=== PATIENT | female | born 1960 | race Caucasian/White ===

== ENCOUNTER → 2020-02-08 08:37 | Outpatient (BNVA) | payer OTHER, SELFPAY | PROVIDERS: PCP Internal Medicine Endocrinology, Diabetes & Metabolism; Referring Provider Internal Medicine Endocrinology, Diabetes & Metabolism; Visit Provider Surgery | DX: E66.01 Morbid (severe) obesity due to excess calories (principal); Z68.43 Body mass index [BMI] 50.0-59.9, adult; G47.30 Sleep apnea, unspecified; E78.5 Hyperlipidemia, unspecified; I10 Essential (primary) hypertension; J45.909 Unspecified asthma, uncomplicated | CPT/HCPCS: 99202 ==

== ENCOUNTER → 2020-02-14 07:47 | Outpatient (BNVA) | payer OTHER, SELFPAY | PROVIDERS: PCP Internal Medicine Endocrinology, Diabetes & Metabolism; Referring Provider Internal Medicine Endocrinology, Diabetes & Metabolism; Visit Provider Dietitian, Registered | DX: Z01.818 Encounter for other preprocedural examination (principal); E66.01 Morbid (severe) obesity due to excess calories; Z68.43 Body mass index [BMI] 50.0-59.9, adult; Z71.3 Dietary counseling and surveillance | CPT/HCPCS: 99211 ==

== ENCOUNTER 2020-02-14 09:22 | Outpatient (REF) | payer OTHER, SELFPAY ==
--- NOTE | 2020-02-14 09:28 | XR_ITS ---
EXAMINATION: XR CHEST CLINICAL INFORMATION: Hyperlipidemia, unspecified COMPARISON: Chest radiographs 03/21/2017, 02/17/2017 TECHNIQUE: 2 frontal views and a lateral projection of the chest are obtained for 3 views. FINDINGS: The heart is within normal size. The vascularity is normal. There is no airspace consolidation or groundglass opacity. The costophrenic sulci are clear. The hilar and mediastinal contours and bony structures are unremarkable. XR/XR chest 2V IMPRESSION: Unremarkable examination.
[2020-02-14 12:02] LABS: MANUAL DIFF FLAG NO
[2020-02-14 12:11] LABS: Basophils Percent Auto 0.5 % (0-2); Eosinophils Absolute Auto 0.2 X10*3/uL (0.0-0.4); Eosinophils Percent Auto 2.4 % (0-4); Hemoglobin 13.4 g/dl (12.0-16.0); Imm Gran Abs Auto 0.04 X10*3/uL (0.00-0.03); Imm Gran Pct Auto 0.6 % (0.0-0.4); Lymphocytes Absolute Auto 1.4 X10*3/uL (1.2-4.9); Lymphocytes Percent Auto 22.9 % (20-40); Mean Corpuscular HGB Conc 32.7 g/dl (31.0-35.0); Mean Corpuscular Hemoglobin 29.8 pg (27.0-33.0); Mean Corpuscular Volume 91.3 fL (80-98); Mean Platelet Volume 10.2 fL (9.4-12.3); Monocytes Absolute Auto 0.4 X10*3/uL (0.1-1.2); Monocytes Percent Auto 5.9 % (2-11); Neutrophils Absolute Auto 4.3 X10*3/uL (2.0-8.3); Neutrophils Percent Auto 67.7 % (45-73); Platelet Count 239 X10*3/uL (160-400); Red Blood Count 4.49 X10*6/uL (4.20-5.50); Red Cell Distribution Width 12.9 % (11.0-16.0); White Blood Count 6.3 X10*3/uL (4.8-10.8)
[2020-02-14 13:07] LABS: Folate 12.3 ng/mL (> or = 4.0); Vitamin B12 330 pg/mL (200-900)
[2020-02-14 15:34] LABS: Alanine Aminotransferase 41 U/L (0-31); Albumin Level 4.2 g/dL (3.5-5.0); Alkaline Phosphatase 119 U/L (39-117); Anion Gap 17 (12-20); Aspartate Amino Transferase 30 U/L (5-31); Bilirubin Total 0.5 mg/dL (0.0-1.0); Blood Urea Nitrogen 13 mg/dL (9-16); C Reactive Protein 0.69 mg/dL (< or = 0.50); Calcium 8.8 mg/dL (8.4-10.2); Carbon Dioxide 25 mmol/L (22-29); Chloride 106 mmol/L (96-108); Cholesterol 163 mg/dL; Estimated Glomerular Filt Rate 45; Glucose Random 263 mg/dL (60-115); HDL Cholesterol 60 mg/dL; LDL Cholesterol Calculated 62 mg/dl; Potassium 4.7 mmol/l (3.3-5.1); Sodium 143 mmol/L (135-145); Total Protein 6.9 g/dL (6.5-8.0); Triglycerides 205 mg/dL
[2020-02-14 15:54] LABS: Ferritin 108 ng/mL (10-250)
[2020-02-14 17:56] LABS: Estimated Average Glucose 237 mg/dL; Hemoglobin A1c % 9.9 %
[2020-02-15 14:21] LABS: H Pylori Breath Test NOT DETECTED (NOT DETECTED)
[2020-02-17 09:26] LABS: Zinc 84 mcg/dL (60-130)
[2020-02-18 06:36] LABS: Vitamin B1 7 nmol/L (8-30)
[2020-02-18 12:17] LABS: Insulin Level Total 38.8 uIU/mL
[2020-02-20 18:56] LABS: Vitamin A 69 mcg/dL (38-98)
== END 2020-02-14 09:23 | disposition home or self-care (01) ==
LOC: HO.LAB 09:22
PROVIDERS: PCP Internal Medicine; Visit Provider Surgery
DX: E78.5 Hyperlipidemia, unspecified (principal); G47.30 Sleep apnea, unspecified; J45.909 Unspecified asthma, uncomplicated; E66.01 Morbid (severe) obesity due to excess calories
CPT/HCPCS: 36415; 71046; 80053; 80061; 82607; 82728; 82746; 83013; 83036; 83525; 84425; 84443; 84590; 84630; 85025; 86140

== ENCOUNTER 2020-02-21 07:42 | Outpatient (REF) | payer OTHER, SELFPAY ==
--- NOTE | 2020-02-21 10:25 | ECG_ITS ---
Test Reason : SOB, PREOP Blood Pressure : / mmHG Vent. Rate : 065 BPM Atrial Rate : 065 BPM P-R Int : 160 ms QRS Dur : 086 ms QT Int : 408 ms P-R-T Axes : 078 -05 047 degrees QTc Int : 424 ms Normal sinus rhythm Normal ECG When compared with ECG of 21-MAR-2017 13:24, No significant change was found Referred By: Jaime Lal Electronically Signed By:GERALDINE MIR MD
--- NOTE | 2020-02-21 10:25 | CA_ITS ---
Transthoracic Echocardiogram Patient (Last, First, Middle): Alexandria Galloway C Gender: Female Date of : 1960 Age: 59 Procedure Date: 02/21/2020 Procedure Type: Transthoracic Echocardiogram Location: OP Height: 170.18 cm Weight: 148.33 kg BSA: 2.49 m2 Heart Rate: bpm BP: 190 / 100 mmHg Safety Companion: Nazia MD: Jaime Lal MD Machinery Dismantler: Rick Jimenez MD Symptoms: E78.5 - Hyperlipidemia, unspecified Study Quality: Technically Difficult ECG Rhythm: Sinus Conclusions: - 1. Normal LV systolic function with normal diastolic function 2. Limited evaluation of cardiac valves with normal Doppler 3. Technically limited study despite use of definity contrast Findings Procedure Information Contrast agent, definity, is being given per protocol without apparent complications. Left Ventricle Normal left ventricular cavity size. The left ventricular systolic function is normal. The visually estimated ejection fraction is between 60-65%. There is no evidence of regional wall motion abnormalities. Diastolic function is normal for age. Right Ventricle The right ventricle was not well visualized. Atria The left atrium is normal in size. Interatrial shunt cannot be excluded. The right atrium was not well visualized. Aortic Valve The aortic valve was not well visualized. There is no aortic valve stenosis. There is no aortic valve regurgitation. Mitral Valve The mitral valve was not well visualized. There is no mitral valve regurgitation. There is no mitral valve stenosis. Pulmonic Valve The pulmonic valve was not well visualized. Tricuspid Valve The tricuspid valve was not well visualized. Tricuspid regurgitation envelope is inadequate for calculation of right ventricular systolic pressure. Great Vessels The aorta was not well visualized. The pulmonary artery was not well visualized. Venous The inferior vena cava was not well visualized. Pericardium/Pleural The pericardium was not well visualized. Prior Study Comparison Changes noted compared to prior study dated: 03/17/2017. LV mid cavity gradient not noted on this study could be under estimated Measurements 2D Linear Measurements LA Diam: 3.70 2.7-3.8/3.0-4.0 cm LAIDs Index: 1.49 1.5-2.3 cm/m2 LVOT Diam: 2.00 3.0+(-)1.3 cm Mitral Valve MV Pk E: 0.94 MV PK A: 0.65 MV Decel Time: 289.00 E/A: 1.50 E'Lateral: 7.40 E'Medial: 5.55 E/E' Med: 17.00 E/E' Lat: 12.70 Aortic Valve AoV Pk Maury: 1.67 AoV Mn Maury: 1.21 AoV VTI: 0.39 AoV Pk Grad: 11.00 Aov Mn Grad: 6.00 JAYNE Cont.VTI: 2.33 LVOT LVOT Pk Maury: 1.15 LVOT Mn Maury: 0.75 LVOT VTI: 0.29 LVOT Pk Grad: 5.00 LVOT Mn Grad: 3.00 LVOT Diam: 2.00 LVOT Area: 3.14 Diastolic Function MV Pk E: 0.94 MV Pk A: 0.65 E/A: 1.50 E'Medial: 5.55 E/E' Med: 17.00 E' Laterial: 7.40 E/E' Lat: 12.70 Tricuspid Valve RA Press: 8.00 Great Vessels Aorta Ao Asc: 2.60 2.1-3.4 cm Ao Arch: 2.70 Updated in Other Vendor System with Status of Final Rick Jimenez MD electronically signed on 02/22/2020 2:17:58 PM with status of Final
--- NOTE | 2020-02-21 12:56 | PFT_ITS ---
INDICATION: COPD. SPIROMETRY: The FEV1 to FVC is 88% with an FEV1 of 2.83 L, which is 97% predicted and an FVC of 3.24 L, which is 76% predicted. No significant response to bronchodilators noted. Maximum voluntary ventilation 101% predicted. LUNG VOLUMES: Total lung capacity 92% predicted with an expiratory reserve volume of 10% predicted, likely from elevated BMI. DIFFUSION CAPACITY: DLCO 81% predicted. COMPARISONS: None. INTERPRETATION: No obstructive nor restrictive ventilatory defects have been described. No significant response to bronchodilators noted. Normal maximum voluntary ventilation. Lung volumes do demonstrate a normal total lung capacity, however, a critically low expiratory reserve volume secondary to the elevated BMI. Diffusion capacity is low normal. If asthma is in the differential, a methacholine challenge may be helpful in assessing for hyper-reactive airways, otherwise, clinical correlation warranted. MD NORMA Geller/KASH / [id number]
== END 2020-02-21 07:43 | disposition home or self-care (01) ==
LOC: HO.RESP 07:42
PROVIDERS: Visit Provider Surgery
DX: Z01.818 Encounter for other preprocedural examination (principal); I10 Essential (primary) hypertension; J45.41 Moderate persistent asthma with (acute) exacerbation; E78.5 Hyperlipidemia, unspecified; J45.909 Unspecified asthma, uncomplicated
CPT/HCPCS: 93005; 93306; 94060; 94727; 94729; Q9957

== ENCOUNTER → 2020-02-27 08:11 | Outpatient (BNVA) | payer OTHER, SELFPAY | PROVIDERS: PCP Internal Medicine; Visit Provider Surgery | DX: Z76.89 Persons encountering health services in other specified circumstances (principal) ==

== ENCOUNTER → 2020-03-21 08:09 | Outpatient (BNVA) | payer OTHER, SELFPAY | PROVIDERS: PCP Internal Medicine; Referring Provider Internal Medicine; Visit Provider Surgery | DX: Z76.89 Persons encountering health services in other specified circumstances (principal) ==

== ENCOUNTER → 2020-03-27 09:08 | Outpatient (BNVA) | payer OTHER, SELFPAY | PROVIDERS: PCP Internal Medicine; Referring Provider Internal Medicine; Visit Provider Dietitian, Registered | DX: Z76.89 Persons encountering health services in other specified circumstances (principal) ==

== ENCOUNTER → 2020-04-07 09:10 | Outpatient (BNVA) | payer OTHER, SELFPAY | PROVIDERS: PCP Internal Medicine; Visit Provider Surgery | DX: Z76.89 Persons encountering health services in other specified circumstances (principal) ==

== ENCOUNTER → 2020-04-18 13:24 | Outpatient (BNVA) | payer OTHER, SELFPAY | PROVIDERS: PCP Internal Medicine; Visit Provider Surgery | DX: E66.01 Morbid (severe) obesity due to excess calories (principal); K21.9 Gastro-esophageal reflux disease without esophagitis; I10 Essential (primary) hypertension; E78.5 Hyperlipidemia, unspecified; G47.30 Sleep apnea, unspecified; R16.0 Hepatomegaly, not elsewhere classified | CPT/HCPCS: 99212 ==

== ENCOUNTER 2020-04-22 11:58 | Outpatient (REF) | payer OTHER, SELFPAY ==
--- NOTE | 2020-04-22 12:05 | US_ITS ---
EXAMINATION: US COMPLETE ABDOMEN WITH LIVER ELASTOGRAPHY CLINICAL INFORMATION: Hepatomegaly. COMPARISON: Ultrasound abdomen 02/22/2017 TECHNIQUE: Real-time imaging of the abdominal viscera. Noninvasive ultrasound liver fibrosis assessment is performed using Millie ElastPQ point quantification shear wave elastography (pSWE) with a 5 MHz transducer. Multiple elastography samples are obtained. FINDINGS: PANCREAS: Normal. The visualized pancreatic head and body are normal in appearance. The remainder of the pancreas is obscured from visualization by the overlying bowel gas. ABDOMINAL AORTA: The proximal, middle, and distal aortic segments are normal in caliber. INFERIOR VENA CAVA: Visualized portions are normal. LIVER: The liver demonstrates normal size, contour and increased echogenicity. No focal lesion or intrahepatic biliary duct dilatation. The right lobe measures 16.5 cm in length. The left lobe measures 9.4 cm in length. Shear wave elastography provides a median stiffness of 2.70 m/s (reference: normal median stiffness is 0.81 - 1.22 m/s). The IQR/median stiffness to assess sampling precision is 0.46 (reference: optimal IQR/median stiffness is under 0.3). On previous ultrasound the median stiffness was 1.65 m/s. GALLBLADDER: Normal. The gallbladder is physiologically distended without evidence of stones, sludge, polyps, wall thickening or pericholecystic fluid. COMMON BILE DUCT: Normal in caliber measuring 0.5 cm in diameter. RIGHT KIDNEY: Normal. No hydronephrosis. No renal calculi or focal parenchymal lesions. The kidney measures 10.6 cm in maximum dimension. LEFT KIDNEY: Normal. No hydronephrosis. No renal calculi or focal parenchymal lesions. The kidney measures 11.2 cm in maximum dimension. SPLEEN: Normal. The spleen measures 9.7 cm in maximum dimension. FREE FLUID: None. US/US abdomen comp w elastography IMPRESSION: 1. Borderline hepatomegaly with increased liver echogenicity. Rest of the abdominal ultrasound is unremarkable. 2. Elastography: Moderate to severe fibrosis, F3- F4. On previous ultrasound 02/22/2017 the median stiffness measured 1.65 m/s.
[2020-04-22 13:14] LABS: MANUAL DIFF FLAG NO
[2020-04-22 13:20] LABS: Basophils Percent Auto 0.3 % (0-2); Eosinophils Absolute Auto 0.1 X10*3/uL (0.0-0.4); Eosinophils Percent Auto 1.8 % (0-4); Hematocrit 42.2 % (37-47); Hemoglobin 13.9 g/dl (12.0-16.0); Imm Gran Abs Auto 0.03 X10*3/uL (0.00-0.03); Imm Gran Pct Auto 0.4 % (0.0-0.4); Lymphocytes Absolute Auto 1.4 X10*3/uL (1.2-4.9); Lymphocytes Percent Auto 18.8 % (20-40); Mean Corpuscular HGB Conc 32.9 g/dl (31.0-35.0); Mean Corpuscular Hemoglobin 29.7 pg (27.0-33.0); Mean Corpuscular Volume 90.2 fL (80-98); Mean Platelet Volume 9.4 fL (9.4-12.3); Monocytes Absolute Auto 0.6 X10*3/uL (0.1-1.2); Monocytes Percent Auto 8.3 % (2-11); Neutrophils Absolute Auto 5.2 X10*3/uL (2.0-8.3); Neutrophils Percent Auto 70.4 % (45-73); Platelet Count 269 X10*3/uL (160-400); Red Blood Count 4.68 X10*6/uL (4.20-5.50); Red Cell Distribution Width 13.2 % (11.0-16.0); White Blood Count 7.4 X10*3/uL (4.8-10.8)
[2020-04-22 13:24] LABS: Estimated Average Glucose 146 mg/dL; Hemoglobin A1c % 6.7 %
[2020-04-22 13:50] LABS: Alanine Aminotransferase 47 U/L (0-31); Albumin Level 4.6 g/dL (3.5-5.0); Alkaline Phosphatase 77 U/L (39-117); Anion Gap 15 (12-20); Aspartate Amino Transferase 33 U/L (5-31); Bilirubin Total 0.8 mg/dL (0.0-1.0); Blood Urea Nitrogen 22 mg/dL (9-16); C Reactive Protein 1.64 mg/dL (< or = 0.50); Calcium 10.2 mg/dL (8.4-10.2); Carbon Dioxide 26 mmol/L (22-29); Chloride 107 mmol/L (96-108); Cholesterol 225 mg/dL; Estimated Glomerular Filt Rate 50; Glucose Random 117 mg/dL (60-115); HDL Cholesterol 49 mg/dL; LDL Cholesterol Calculated 119 mg/dl; Potassium 4.9 mmol/l (3.3-5.1); Sodium 143 mmol/L (135-145); Total Protein 7.4 g/dL (6.5-8.0); Triglycerides 287 mg/dL
[2020-04-22 14:11] LABS: TSH reflex Free T4 2.14 mIU/mL (0.32-4.0)
[2020-04-22 14:15] LABS: INTERNATIONAL NORM RATIO 1.1 (0.9-1.1); Prothrombin Time 12.6 SEC (10.8-13.0)
[2020-04-22 14:18] LABS: Partial Thromboplastin Time 37.7 SEC (24.1-38.0)
[2020-04-23 11:27] LABS: Insulin Level Total 25.4 uIU/mL
== END 2020-04-22 11:59 | disposition home or self-care (01) ==
LOC: HO.US 11:58
PROVIDERS: Visit Provider Surgery
DX: Z01.818 Encounter for other preprocedural examination (principal); E66.01 Morbid (severe) obesity due to excess calories; E78.5 Hyperlipidemia, unspecified; G47.30 Sleep apnea, unspecified; J45.909 Unspecified asthma, uncomplicated; R16.0 Hepatomegaly, not elsewhere classified; E11.9 Type 2 diabetes mellitus without complications; Z79.4 Long term (current) use of insulin
CPT/HCPCS: 36415; 76705; 76981; 80053; 80061; 83036; 83525; 84443; 85025; 85610; 85730; 86140

== ENCOUNTER 2020-04-29 06:43 | Inpatient (IN) | payer OTHER, SELFPAY ==
[2020-04-18 12:39] VITALS: BP 143/90; PULSE 67; RESP 16; TEMP 36.3; O2SAT 97; BMI 47.7
--- NOTE | 2020-04-18 13:00 | P.CONAN_ITS ---
Documented by User: Francisca Campbell 04/25/20 13:36 HPI - Anesthesia Eval Consult details Narrative: 59yo F for Gastric Bypass Laproscopic PMFSH Past Medical History Medical History Anxiety Asthma COPD (chronic obstructive pulmonary disease) Depression GERD (gastroesophageal reflux disease) Hepatomegaly Hyperlipidemia Hypertension Insulin dependent diabetes mellitus Sleep apnea with use of continuous positive airway pressure (CPAP) Vitamin B1 deficiency Vitamin B12 deficiency Family History Family History Father Diabetes Heart disease Hypertension Mother No problems noted. Brother No problems noted. Sister No problems noted. Sister No problems noted. Family history of problems with anesthesia: No Surgical History Surgical History History of bilateral carpal tunnel release Hx of breast reduction, elective Hx of cardiac cath Morbid obesity History of Problems with Anesthesia: No Social History Social History Are you a primary administrator health care facility to a significant other at home: No Do you presently have visiting nurse or other home services: No Alcohol intake: former Smoking Status: Former smoker Smoking Quit Date: 2014 Use of substances other than those prescribed or required for medical reasons: Yes Substance Use Type: Marijuana Substance Use Frequency: Weekly Have you been hit, kicked, punched, or otherwise hurt by someone within the past year? If so, by whom?: No Spiritual Healthcare Practices: none Sabianist Healthcare Practices: none Cultural Healthcare Practices: none Advance Directives: No Advance Directives on File: No Recently lost weight without trying: No Narrative Narrative: No recent illness. Mild RANDLE. Improving with weightloss. No CP. Meds Allergies Allergy/AdvReac Type Severity Reaction Status Date / Time irbesartan [From AVALIDE] Allergy Severe Anaphylaxis Verified 04/29/20 06:31 lisinopril [From Zestril] Allergy Severe ANGIOEDEMA Verified 04/29/20 06:31 Home Medications Medication Instructions Recorded Confirmed Type albuterol sulfate 90 mcg/actuation 2 puff INHALATION Q6H PRN 02/08/20 04/18/20 History aerosol inhaler aspirin 81 mg tablet,delayed 81 mg PO DAILY 02/08/20 04/18/20 History release atorvastatin 20 mg tablet 20 mg PO DAILY 02/08/20 04/18/20 History blood sugar diagnostic #10 ea 02/08/20 04/18/20 History brexpiprazole 1 mg tablet 1 mg PO DAILY 02/08/20 04/18/20 History bupropion HCl 150 mg tablet,12 hr 150 mg PO BID 02/08/20 04/18/20 History sustained-release clonazepam 0.5 mg tablet 0.5 mg PO BID PRN 02/08/20 04/18/20 History dulaglutide 1.5 mg/0.5 mL 1.5 mg SUBCUT QWEEK 02/08/20 04/18/20 History subcutaneous pen injector duloxetine 20 mg capsule,delayed 40 mg PO BEDTIME 02/08/20 04/18/20 History release fluticasone propionate 232 1 inh INHALATION Q12H 02/08/20 04/17/20 History mcg/actuation breath activated powder inhaler insulin glargine 100 unit/mL (3 24 unit SUBCUT BEDTIME 02/08/20 04/18/20 History mL) subcutaneous pen lancets 28 gauge #100 ea 02/08/20 04/18/20 History metformin 500 mg tablet 1,000 mg PO BID 02/08/20 04/18/20 History metoprolol tartrate 50 mg tablet 50 mg PO BID 02/08/20 04/18/20 History sitagliptin 100 mg tablet 100 mg PO DAILY 02/08/20 04/18/20 History Exam Exam Date and Time: April 18, 2020 1300 Height,Weight and Vital Signs: Height 5 ft 7 in Weight 138.346 kg Last Vital Signs Temp 97.3 F 04/18/20 12:39 Pulse 67 04/18/20 12:39 Resp 16 04/18/20 12:39 BP 143/90 H 04/18/20 12:39 Pulse Ox 97 04/18/20 12:39 Narrative Narrative: EKG 02/2020: NSR @ 65 Echo 02/2020: Conclusions: - 1. Normal LV systolic function with normal diastolic function 2. Limited evaluation of cardiac valves with normal Doppler 3. Technically limited study despite use of definity contrast PFT 02/2020: No obstructive nor restrictive defect. No siginificant response to bronchodilators noted. Normal maximum voluntary ventilation. Lung volumes do demonstrate a normal total lung capacity, however, a critically low expiratory reserve volume secondary to elevated BMI. Diffusion capacity is a low normal. CXR 02/2020: unremarkable exam Cath 2017: Nml LV end-diastolic pressure. Nml resting left and right filling pressures. Nml resting PA pressures. No significant gradient across Aortic Valve. No HOCM physiology with simultaneous gradient across the LVOT. Coronary arteries are angiographically normal. Airway Mallampati Class: II (Small mouth) TM Dist: <=3cm Neck ROM: Full Loose/Missing/Broken Teeth: Yes (R lower molar broken, missing molars, ) Heart: RRR Lungs: CTAB Assessment and Plan Assessment Anesthesia Assessment: Anesthesia Plan Discussed and PAT Visit Documented by User: Loi Holder 04/29/20 07:14 PMFSH Past Medical History Medical History Anxiety Asthma COPD (chronic obstructive pulmonary disease) Depression GERD (gastroesophageal reflux disease) Hepatomegaly Hyperlipidemia Hypertension Insulin dependent diabetes mellitus Sleep apnea with use of continuous positive airway pressure (CPAP) Vitamin B1 deficiency Vitamin B12 deficiency Family History Family History Father Diabetes Heart disease Hypertension Mother No problems noted. Brother No problems noted. Sister No problems noted. Sister No problems noted. Surgical History Surgical History History of bilateral carpal tunnel release Hx of breast reduction, elective Hx of cardiac cath Morbid obesity Social History Social History Are you a primary administrator health care facility to a significant other at home: No Do you presently have visiting nurse or other home services: No Alcohol intake: former Smoking Status: Former smoker Smoking Quit Date: 2014 Use of substances other than those prescribed or required for medical reasons: Yes Substance Use Type: Marijuana Substance Use Frequency: Weekly Have you been hit, kicked, punched, or otherwise hurt by someone within the past year? If so, by whom?: No Spiritual Healthcare Practices: none Sabianist Healthcare Practices: none Cultural Healthcare Practices: none Advance Directives: No Advance Directives on File: No Recently lost weight without trying: No Meds Allergies Allergy/AdvReac Type Severity Reaction Status Date / Time irbesartan [From AVALIDE] Allergy Severe Anaphylaxis Verified 04/29/20 06:31 lisinopril [From Zestril] Allergy Severe ANGIOEDEMA Verified 04/29/20 06:31 Home Medications Medication Instructions Recorded Confirmed Type albuterol sulfate 90 mcg/actuation 2 puff INHALATION Q6H PRN 02/08/20 04/18/20 History aerosol inhaler aspirin 81 mg tablet,delayed 81 mg PO DAILY 02/08/20 04/18/20 History release atorvastatin 20 mg tablet 20 mg PO DAILY 02/08/20 04/18/20 History blood sugar diagnostic #10 ea 02/08/20 04/18/20 History brexpiprazole 1 mg tablet 1 mg PO DAILY 02/08/20 04/18/20 History bupropion HCl 150 mg tablet,12 hr 150 mg PO BID 02/08/20 04/18/20 History sustained-release clonazepam 0.5 mg tablet 0.5 mg PO BID PRN 02/08/20 04/18/20 History dulaglutide 1.5 mg/0.5 mL 1.5 mg SUBCUT QWEEK 02/08/20 04/18/20 History subcutaneous pen injector duloxetine 20 mg capsule,delayed 40 mg PO BEDTIME 02/08/20 04/18/20 History release fluticasone propionate 232 1 inh INHALATION Q12H 02/08/20 04/17/20 History mcg/actuation breath activated powder inhaler insulin glargine 100 unit/mL (3 24 unit SUBCUT BEDTIME 02/08/20 04/18/20 History mL) subcutaneous pen lancets 28 gauge #100 ea 02/08/20 04/18/20 History metformin 500 mg tablet 1,000 mg PO BID 02/08/20 04/18/20 History metoprolol tartrate 50 mg tablet 50 mg PO BID 02/08/20 04/18/20 History sitagliptin 100 mg tablet 100 mg PO DAILY 02/08/20 04/18/20 History Exam Airway Mallampati Class: III TM Dist: >3cm Neck ROM: Full Loose/Missing/Broken Teeth: No Heart: [id number] Lungs: cta b/l Assessment and Plan Assessment Anesthesia Assessment: Anesthesia Plan Discussed, PAT Visit and Chart Reviewed Final Anesthetic Review NPO: Yes ASA Class: III Final Preanesthetic Review: No Changes in Pt Med Stat, Meds/Allgs Chart Reviewed, Consent Obtained/Reviewed and Anes Risks/Benef Reviewed Patient Risk: Intermediate Procedure Risk: Intermediate Assessment/Block/Sedation in SS: Assess/Block/Sedation-SS Anesthetic Plan Anesthetic Plan: GA and Agree w/ Assess. and Plan Disposition: Standard PACU
[2020-04-29] VITALS (36 sets, daily range): BP systolic 136–216; BP diastolic 69–112; PULSE 72–109; RESP 14–20; TEMP 35.6–36.8; O2SAT 89–100
[2020-04-29 06:49] LABS: COVID-19 Test Negative (Negative); IDNOW Serial# 9DD0AD1C
[2020-04-29] MEDS: Lactated Ringers 1,000 ML 100 ML IVCONT (07:02)
--- NOTE | 2020-04-29 07:04 | MHC.SHP ---
Pre-Procedural Eval Section A The patient is an INPATIENT: Yes The History & Physical has been completed within 30 days and I have reviewed it.: Yes Section B Chief Complaint: S/P Gastric bypass and possible hernia repair Details of Present Illness: Morbid obesity Relevant Family History (Specify if Yes): No Relevant Social History: None Present Medications: see Short Stay Collaborative assessment Medical History: No relevant PMH History of Previous Operations: No relevant previous surgery Allergies: Allergies Allergy/AdvReac Type Severity Reaction Status Date / Time irbesartan [From AVALIDE] Allergy Severe Anaphylaxis Verified 04/29/20 06:31 lisinopril [From Zestril] Allergy Severe ANGIOEDEMA Verified 04/29/20 06:31 Review of Systems Sugical H&P ROS: Negative: Constitution, Cardiovascular, Respiratory, Neurological, Psychiatric, Hem-Onc, Allergic/Immunologic, Gastrointestinal, Genitourinary, Musculoskeletal, Integumentary, Endocrine and Eyes/Ears/Nose/Throat Exam Surgical H&P Exam: Normal: HEENT, Normal: Heart, Normal: Lungs, Normal: Extremities, Normal: Abdomen, Normal: Skin and Normal: Neurological Plan Diagnosis/Plan: Unchanged I have reviewed the history and physical and performed a pertinent physical examination on my patient. No changes have occurred unless specified.
[2020-04-29] MEDS: ceFAZolin Sodium/Dextrose,Iso 2 GM/50 ML PIGGYBACK IV ×2 (07:23→14:07)
[2020-04-29] MEDS: Lactated Ringers 1,000 ML 999 ML IVCONT (07:25)
[2020-04-29 08:45] LABS: Glucose, Whole Blood 130 mg/dL (60-115)
--- NOTE | 2020-04-29 12:46 | P.BOP_ITS ---
Brief Operative Note Date of Service: 04/29/20 Pre-op diagnosis: Morbid obesity and comorbidities (see below) Post-op diagnosis: same Procedure: PROCEDURE: Upper endoscopy and laparoscopic Lam-en-Y gastric bypass with a Lam limb of 230 cm INDICATIONS: This is a 59 year-old female with a BMI of 52.7 kg/m2 and associated comorbid conditions as described previously. After appropriate workup was performed, the patient was electively scheduled for laparoscopic, possibly open, gastric bypass. The risks and complications of the procedure were discussed with the patient in advance, particularly the possibility of ; pulmonary embolism; anastomotic leak; bleeding; bowel obstruction; cardiac, pulmonary, or renal complications; as well as long-term problems such as insufficient weight loss, vitamin deficiency, anastomotic strictures, or ulcers. The patient understood all the risks, and was in agreement to proceed with surgery. DESCRIPTION OF PROCEDURE: After informed consent was obtained from the patient, the patient was given pre operative antibiotics, and was transferred to the operating room. After successful induction of general anesthesia, a Meeks catheter and pneumatic compressive devices were placed on both lower extremities. An upper endoscopy was performed next. The oropharynx and esophagus appeared to be within normal limits. There was no diaphragmatic hernia present. The stomach was entered. Then after all fluid and air were suctioned and the stomach was fully decompressed, the scope was withdrawn and secured in the mid esophagus. The patient was then prepped and draped in the usual sterile manner, and abdo kaushik access was established at the right upper quadrant with the Caitlyn technique. A 12 mm blunt port was inserted, and the abdomen was insufflated with CO2 to a pressure of 15 mmHg. Under direct visualization, additional ports were placed, specifically a 5 and a 12 mm Versi-Step port, to the left and right of the umbilicus, two 5 mm ports to the left upper quadrant, and a 5 mm Versi-Step port to the right upper quadrant. Lidocaine plain was used to inflitrate all skin incisions and fascial defects preemptively. Following that, the patient was placed in a steep reverse Trendelenburg position . An additional 5 mm port was placed to the right flank for the Mediflex retractor that was used to retract the left lobe of the liver. The pars flaccida was opened with the ultrasonic device and the lesser sac was entered. The angle of His was opened with the ultrasonic device the fundus of the stomach from any diaphragmatic and splenic attachments. We then opened the gastrocolic ligament between the transverse colon and the greater curvature of the stomach with the ultrasonic device to enter the lesser sac and facilitate delivery of the Lam limb through the lesser sac at a later step of the procedure. The lesser omentum was divided with an AEON Endo VLAD-45 articulating mireles load. We opened the angle of His with the ultrasonic device, the fundus of the stomach from any diaphragmatic or splenic attachments. After a window was established there, the stomach was divided transversely with an AEON Endo VLAD-45 articulating purple load. Every effort was made that the gastric pouch had a tubular and not spherical shape by limiting the vertical division of the stomach with the first staple load at the lesser curvature. A second articulating AEON Endo VLAD-45 purple load was fired next towards the angle of His. The staple line of the gastric remnant was then reinforced with a running 2-0 Surgidac suture using the Endo Stitch device. The retrogastric space was dissected after the first two staple loads were fired. The retrogastric space was opened in the avascular plane medially to the splenic artery and laterally to the left ric all the way to the angle of His. The gastric pouch was completed with two additional AEON Endo VLAD-45 and 60 articulating purple loads. The remaining staple line of the gastric remnant was also reinforced with a running 2-0 Rahul gidac suture using the Endo Stitch device. The staple line of the gastric pouch was reinforced with Hemoclips. The patient was then placed in supine position, and after we retracted the transverse colon and the omentum cephalad, we identified the ligament of Treitz. I counted 50 cm from the ligament of Treitz, and the small bowel and the mesentery were divided with an AEON Endo VLAD-60 white load. Using the ultrasonic device, we opened the peritoneum at the root of the mesentery further to gain extra mobility. A clip was used to bonny the proximal end of the divided bowel, the bilio-pancreatic end, which was run back to the ligament of Treitz to confirm that we had marked the correct side and we had done so. We then developed the mesocolic window slightly to the left and superior to the ligament of Treitz using the ultrasonic device. The apex of the Lam limb was identified. Following that, we grasped the apex of the Lam limb with an articulating bowel grasper, and after we made sure there was no twisting of the mesentery, it was delivered in a retrocolic, retrogastric fashion through the mesocolic window which we had previously made. Following that, we noted there was no tension between the gastric pouch and the Lam limb. Enterotomies were made at the apex of the pouch and the Lam limb, and the gastro-jejunostomy was made with a [employer] Endo VLAD-45 bell load measured to be 4.5 cm in diameter. The enterotomy was closed using the Endo Stitch device in one layer of running 2-0 Polysorb suture in a [place] fashion starting from each corner of the enterotomy and tying the two ends together in the center of the enterotomy. The Lam limb was clamped with a bowel clamp approximately 15 cm from the gastro-jejunostomy, and a leak test was performed by submerging the anastomosis in saline and insufflating air off the scope into the pouch. There was no narrowing of the GE junction. There was no air leak during the test. There was no significant ischemia of the mucosa of the gastric pouch or Lam limb. There was no bleeding from the suture or staple lines of the anastomosis, as well as the staple line of the gastric pouch which was clearly seen in its entirety. In addition, the anastomosis was patent, and we easily advanced the scope into the proximal Lam limb. With the scope pulled back at the esophagus, we reinforced the anastomosis circumferentially with multiple interrupted 2-0 Polysorb sutures in a Lembert type fashion using the Endo Stitch device. At that point, I pulled the endoscope back to the esophagus while we were decompressing the Lam limb and gastric pouch from any remaining air. At that point, the patient was placed in supine position, and after we reduced the Lam limb back into the abdomen, I counted 230 cm from the gastro- jejunostomy. An enterotomy was made there with the ultrasonic device. After a similar enterotomy was made at the apex of the bilio-pancreatic limb, the jejuno-jejunostomy was made with an [employer] Endo VLAD-60 white load. The enterotomy was closed with another AEON Endo VLAD-60 white load after appropriate alignment with four interrupted 2-0 Surgidac sutures. Two anti-obstruction sutures were placed next between the staple line of the bilio-pancreatic limb and the mesentery of the Lam limb distal from the anastomosis to prevent kinking of the anastomosis. We then closed the small bowel mesenteric defect in a running fashion using a running 2-0 Surgidac suture using the Endo Stitch device. We checked the anastomosis at the end. The jejuno-jejunostomy was patent. The Lam limb was not narrowed. The staple lines were intact, viable, without evidence of any ischemia, bleeding, or any open areas, and the entire anastomosis was sitting nicely without tension, narrowing, or kinking. I then closed the Snell's defect with one interrupted 2-0 Surgidac suture in a U-type fashion and then the mesocolic defect with four interrupted 2-0 Sofsilk sutures in a U-type fashion. The Lam limb was clamped 20 cm inferior to the mesocolic window and another endoscopy was performed. We could easily pass the gastroscope through the gastro-jejunostomy and mesocolic window without any narrowing, kinking, or evidence of bleeding or ischemia. At that point the gastroscope was withdrawn from the patient?s mouth while we were decompressing the bowel and the stomach from any remaining air. I ran back the Lam limb from the mesocolic window to the jejuno-jejunostomy which appeared to be normal without any twisting or kinking. All blood clots were suctioned. We carefully positioned the transverse colon epiploic appendages to the root of the small bowel mesentery to prevent any adhesions between them and the anastomosis that could lead to an internal hernia. I then placed the patient back in a steep reverse Trendelenburg position. I looked into the lesser sac to see how the Lam limb was situating and it was situating well. There was no bleeding from the suture lines of the remnant, angle of His, and gastric pouch, as well as from the mesentery of the Lam limb. At this point I placed a 10 mm JARRED drain underneath the gastro-jejunostomy and I secured the skin level with an #0 Sofsilk suture. The Mediflex retractor was removed, and the undersurface of the liver was inspected and there was no bleeding. The patient was placed in supine position. I closed the fascial defect of the periumbilical 12 mm port site laparoscopically with the EndoClose suture passer device using #1 Polysorb suture and the Caitlyn port with a figure of eight 0 Ethibond suture. Then 100 cc 0.25% Marcaine and 10ml of Dexamathasone were used to infiltrate both fascial closures as well as all skin incisions. At this point, the abdomen was deflated, all ports were removed under direct vision, and no bleeding was noted from any of the port sites. The skin incisions were irrigated with saline and were closed with 4-0 absorbable monofilament sutures. Steri-Strips and OpSites were used to cover all incisions. The patient was extubated and was transferred in stable condition to the recovery room for further care. I was present and performed all antonio parts of the procedure. 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 There were no residents to assist with this case. Shahzad Lal MD, PhD, FACS Surgeon: Jaime Lal MD Anesthesia: GETA, local and other (TAP block) Field Return Repairer: Florencia Eastman Estimated blood loss (mL): 100 Pathology: none sent Condition: stable Disposition: PACU
--- NOTE | 2020-04-29 13:06 | PM.PNGS ---
Subjective Subjective Date of Service: 04/30/20 Interval history: Patient has mild incisional pain. Was able to ambulate and use the incentive spirometer Physical Exam Vital Signs: Vital Signs: Last Vital Signs Temp 96.1 F L 04/29/20 06:26 Pulse 87 04/29/20 12:57 Resp 18 04/29/20 12:57 BP 216/105 H 04/29/20 12:57 Pulse Ox 97 04/29/20 12:57 Body Mass Index 47.7 GI: Inspection: Yes normal to inspection, Yes incision (clean, dry and intact), Yes obesity and Yes other (JARRED with serosanguinous fluid) Extrem: Right lower extremity: normal to inspection (no calf tenderness) Left lower extremity: normal to inspection (no calf tenderness) Progress Note: A&P Assessment and plan (1) Morbid obesity: Status: Acute (2) Insulin dependent diabetes mellitus: Problem details: FBS ~107 Status: Acute (3) Hypertension: Problem details: Monitor your blood pressure daily and report any values less than 120/80 Status: Acute (4) Asthma: Status: Acute (5) Depression: Status: Acute (6) Anxiety: Status: Acute (7) Sleep apnea with use of continuous positive airway pressure (CPAP): Status: Acute (8) Hyperlipidemia: Status: Acute (9) Hepatomegaly: Status: Acute (10) GERD (gastroesophageal reflux disease): Status: Acute (11) Steatosis, liver: Status: Acute (12) Liver fibrosis: Status: Acute (13) Diaphragmatic hernia: (14) S/P gastric bypass: Status: Acute Assessment and Plan: 59 year old female was admitted 04/29/2020 with morbid obesity and comorbidities. Problem 1: s/p laparoscopic Lam-en-Y gastric bypass Status: Doing well Plan: Check am labs and UGI. If OK, will begin phase 1 bariatric diet. Fall Risk Details Current Medications: Current Medications Generic Name Dose Route Start Last Admin Trade Name Freq PRN Reason Stop Dose Admin Albuterol Sulfate 2.5 mg 04/29/20 06:14 Albuterol Sulfate (0.083%) 2.5 Mg/3 Ml Vial.Neb INHALE ONCE PRN Shortness of Breath/Wheezing Fentanyl 50 mcg 04/29/20 07:14 Fentanyl Citrate/Pf 100 Mcg/2 Ml Vial IVPUSH Q5M PRN Pain, Moderate (Pain Scale 4-6 Hydromorphone HCl 0.5 mg 04/29/20 07:14 Hydromorphone Hcl 0.5 Mg/0.5 Ml Syringe IVPUSH Q5M PRN Pain, Severe (Pain Scale 7-10) Lactated Ringer's 1,000 mls @ 100 mls/hr 04/29/20 06:15 04/29/20 07:02 Lr IVCONT 100 mls/hr .Q10H FAITH Administration Ondansetron HCl 4 mg 04/29/20 07:14 Ondansetron Hcl 4 Mg/2 Ml Vial IVPUSH ONCE PRN Nausea and Vomiting Oxycodone HCl 10 mg 04/29/20 07:14 Oxycodone Hcl Immed Release 5 Mg Tablet PO ONCE PRN Pain, Mild (Pain Scale 1-3) Time Spent With Patient Time: Total time spent is greater than 50% in coordination of care (as documented) at patient's floor/unit and/or counseling patient: Time with patient: less than 15 minutes
--- NOTE | 2020-04-29 13:09 | P.DS_ITS ---
DS: Providers Provider Date of Service: 05/01/20 Date of admission: 04/29/20 06:43 Primary care physician: Elba Mcghee MD DS: Medications Discharge Medications Home Medications: Home Medications Medication Instructions Recorded Confirmed albuterol sulfate 90 mcg/actuation 2 puff INHALATION Q6H PRN 02/08/20 04/18/20 aerosol inhaler aspirin 81 mg tablet,delayed 81 mg PO DAILY 02/08/20 04/18/20 release atorvastatin 20 mg tablet 20 mg PO DAILY 02/08/20 04/18/20 blood sugar diagnostic #10 ea 02/08/20 04/18/20 brexpiprazole 1 mg tablet 1 mg PO DAILY 02/08/20 04/18/20 bupropion HCl 150 mg tablet,12 hr 150 mg PO BID 02/08/20 04/18/20 sustained-release clonazepam 0.5 mg tablet 0.5 mg PO BID PRN 02/08/20 04/18/20 dulaglutide 1.5 mg/0.5 mL 1.5 mg SUBCUT QWEEK 02/08/20 04/18/20 subcutaneous pen injector duloxetine 20 mg capsule,delayed 40 mg PO BEDTIME 02/08/20 04/18/20 release fluticasone propionate 232 1 inh INHALATION Q12H 02/08/20 04/17/20 mcg/actuation breath activated powder inhaler insulin glargine 100 unit/mL (3 24 unit SUBCUT BEDTIME 02/08/20 04/18/20 mL) subcutaneous pen lancets 28 gauge #100 ea 02/08/20 04/18/20 metformin 500 mg tablet 1,000 mg PO BID 02/08/20 04/18/20 metoprolol tartrate 50 mg tablet 50 mg PO BID 02/08/20 04/18/20 sitagliptin 100 mg tablet 100 mg PO DAILY 02/08/20 04/18/20 Previous Rx's Medication Instructions Recorded mecobalamin (vitamin B12) 1,000 1,000 mcg PO DAILY #30 tab 02/29/20 mcg chewable tablet ondansetron HCl 4 mg tablet 4 mg PO Q6H PRN #30 tab 04/18/20 pantoprazole 40 mg tablet,delayed 40 mg PO DAILY #30 tab 04/18/20 release polyethylene glycol 3350 17 gram 17 g PO DAILY #14 ea 04/18/20 oral powder packet sucralfate 100 mg/mL oral 10 ml PO BID #420 ml 04/18/20 suspension DS: Summary Time Spent with Patient Time attestation: ADMITTING DIAGNOSIS: Refractory morbid obesity with a BMI of 47.8 kg/m2 and associated co-morbid conditions including CAD, HTN, IDDM, hyperlipidemia, DESIREE on CPAP, depression with anxiety DISCHARGE DIAGNOSIS: same, s/p laparoscopic Lam-en-Y Gastric Bypass Past surgical history: none PROCEDURE: Rmegrwvb-igrbrl-etvixqyecqi and laparoscopic Lam-en-Y gastric bypass DISCHARGE SUMMARY: HISTORY OF PRESENT ILLNESS: The patient is a 59 year-oldwoman with a BMI of 52 kg/m2 and associated co- morbidities as described previously. The patient had extensive preoperative work-up, lost 29.4 lbs preoperatively and was electively scheduled for laparoscopic, possible open gastric bypass. Risks and complications of the surgery were discussed with the patient in advance, particularly the possibility of , pulmonary embolism, anastomotic leak, bleeding, bowel injury, GERD, cardiac, renal or pulmonary complications. The patient understood all the risks and was in agreement with the surgical plan. HOSPITAL COURSE: The patient underwent uneventful laparoscopic Lam-en-Y gastric bypass on the day of admission. Postoperatively, the patient was transferred to the surgical floor on a monitored bed and hemoglobin during the first 8 hours remained stable at 12.9 mg/dl. The patient was on IV Acetaminophen and dilaudid for pain control. On postoperative day one, the patient was feeling well without nausea, vomiting, fevers, or tachycardia. The patient had some mild incisional pain. The abdomen was soft. UGI showed no leak or obstruction. The patient was started on 1 ounce of water or ice every half hour. The Meeks was discontinued. During the first day, the patient did fairly well, having some incisional pain, but able to ambulate adequately and to tolerate liquids well. Since the patient is doing well, we decided that the patient was ready to be discharged. The patient was given instructions to follow-up with me next week and to call my office for any fever over 101, persistent abdominal pain, nausea, vomiting, change in the color of the JARRED fluid, symptoms of DVT such as calf tenderness, or leg swelling, or pulmonary embolism such as chest pain or shortness of breath. The patient was also instructed to drink 40-60 ounces of liquids per day using the 1-ounce cups. The patient was given prescription for Tylenol for pain, Zofran prn for nausea, pantoprazole and carafate. The patient was encouraged to ambulate and use the incentive spirometry. The patient was allowed to shower, but no baths, and encouraged to stay active at home. All of these instructions were given to the patient personally. All questions were answered and the patient understood all instructions. The instructions were given to the patient in print as well. Total time spent providing and/or coordinating discharge services: 30 minutes Discharge coordination time: Greater than 30 minutes Physical Exam Vital Signs: Vital Signs: Last Vital Signs Temp 96.1 F L 04/29/20 06:26 Pulse 87 04/29/20 12:57 Resp 18 04/29/20 12:57 BP 216/105 H 04/29/20 12:57 Pulse Ox 97 04/29/20 12:57 Body Mass Index 47.7 DS: Data Data Completed and Pending Labs on day of discharge: Laboratory Tests 04/22/20 04/29/20 04/29/20 12:50 06:00 06:06 POC Glucose 130 H COVID-19 (JENNA) Negative COVID-19 Clin Com See Note Blood Type O Positive Antibody Screen NEGATIVE Discharge Plan Discharge Anticipated Discharge Date/Time: 04/30/20 16:02 Patient Disposition: Home Health Service Referrals: [facility] [Outside] Elba Mcghee MD [Primary Care Provider] - Discharge Medications: Continued clonazepam 0.5 mg tablet 0.5 mg PO BID PRN (Reason: Anxiety) RF: 0 brexpiprazole 1 mg tablet 1 mg PO DAILY RF: 0 duloxetine 20 mg capsule,delayed release(DR/EC) 40 mg PO BEDTIME RF: 0 bupropion HCl 150 mg tablet sustained-release 12 hr 150 mg PO BID RF: 0 metoprolol tartrate 50 mg tablet 50 mg PO BID RF: 0 albuterol sulfate 90 mcg/actuation HFA aerosol inhaler 2 puff inhalation Q6H PRN (Reason: wheezing) RF: 0 Basaglar KwikPen U-100 Insulin 100 unit/mL (3 mL) insulin pen 24 unit subcut BEDTIME RF: 0 pantoprazole 40 mg tablet,delayed release (DR/EC) 40 mg PO DAILY Qty: 30 RF: 2 sucralfate 100 mg/mL suspension 10 ml PO BID Qty: 420 RF: 2 ondansetron HCl [Zofran] 4 mg tablet 4 mg PO Q6H PRN (Reason: nausea and vomiting) Qty: 30 RF: 0 Held atorvastatin 20 mg tablet 20 mg PO DAILY RF: 0 Hold Instructions: Resume on 05/13/20. Do not restart until Dr Carrion tells you. Discontinued mecobalamin (vitamin B12) 1,000 mcg tablet,chewable 1,000 mcg PO DAILY Qty: 30 RF: 6 Trulicity 1.5 mg/0.5 mL pen injector 1.5 mg subcut QWEEK RF: 0 metformin 500 mg tablet 1,000 mg PO BID RF: 0 Januvia 100 mg tablet 100 mg PO DAILY RF: 0 fluticasone propionate 232 mcg/actuation aerosol powdr breath activated 1 inh inhalation Q12H RF: 0 aspirin [Adult Aspirin Regimen] 81 mg tablet,delayed release (DR/EC) 81 mg PO DAILY RF: 0 polyethylene glycol 3350 [Miralax] 17 gram powder in packet 17 g PO DAILY Qty: 14 RF: 0 No Action (DME) FreeStyle Lite Strips Strip See Rx Instructions strip topical QID Qty: 10 RF: 0 (DME) lancets 28 gauge misc See Rx Instructions ea Not Applicable QID Qty: 100 RF: 0 Discharge Orders: Discharge Order (Routine); Ordered 04/30/20 Ordered By: Ela Tovar Diet: other Activity on Discharge: No heavy lifting Discharge Date/Time: 04/30/20 15:22 Activity Restrictions/Additional Instructions: No tub baths, sex or returning to work until discussed at first post op appointment. No exercise, alcohol, tobacco or illegal drug use. [facility] services will help you with drain care. Make sure to empty and record drainage at least once per day. Call if drainage becomes dark red, cloudy, white or green. Continue to use incentive spirometer hourly while awake. Walk in home for 5- 10 minutes every 2 hours during the first week. Continue phase 1 diet today and start phase 2 diet tomorrow morning. Follow all instructions in the bariatric handbook and call with any questions. Visit Report Forms: Patient Portal Discharge page Care Plan Goals: weight loss Health Concerns: morbid obesity Plan of Treatment: see idscharge instructions.
[2020-04-29] MEDS: Famotidine/PF 20 MG/2 ML VIAL IVPUSH ×2 (13:59→21:39)
[2020-04-29 14:10] LABS: Hematocrit 40.6 % (37-47); Hemoglobin 13.5 g/dl (12.0-16.0)
[2020-04-29 14:36] LABS: Anion Gap 16 (12-20); Blood Urea Nitrogen 17 mg/dL (9-16); Calcium 8.8 mg/dL (8.4-10.2); Carbon Dioxide 21 mmol/L (22-29); Chloride 105 mmol/L (96-108); Creatinine Clr Calc Pharmacy 63.7; Estimated Glomerular Filt Rate 38; Glucose Random 206 mg/dL (60-115); Potassium 5.3 mmol/l (3.3-5.1); Sodium 137 mmol/L (135-145)
[2020-04-29] MEDS: Insulin Lispro 100 UNIT/ML 3 ML VIAL SUBCUT ×2 (17:06→21:39)
[2020-04-29 17:07] LABS: Glucose, Whole Blood 201 mg/dL (60-115)
[2020-04-29] MEDS: ondansetron HCL 4 MG/2 ML VIAL IVPUSH (17:07)
[2020-04-29] MEDS: Metoprolol Tartrate 5 MG/5 ML VIAL IVPUSH (17:33)
[2020-04-29] MEDS: Metoprolol Tartrate 5 MG in 0.9 % Sodium Chloride 50 ML 110 MG IV ×2 (18:22→23:34)
--- NOTE | 2020-04-29 18:34 | PC.NURSE ---
, 1641 BP 179/80 on arrival to unit quality assurance monitor final applied , 1733 5mg metoprolol iv push given as ordered , 1800 bp 180/75 manually 1822 bp 192/98 manually IV metoprolol drip started as ordered.
[2020-04-29] MEDS: hydrALAZINE HCl 20 MG/ML VIAL 10 MG IVPUSH ×2 (19:43→23:30)
[2020-04-29 21:30] LABS: Glucose, Whole Blood 204 mg/dL (60-115)
[2020-04-29] MEDS: 0.9 % Sodium Chloride Flush 3 ML SYRINGE IVFLUSH (21:39)
[2020-04-29] MEDS: 0.9 % Sodium Chloride 1,000 ML 100 ML IVCONT (23:38)
[2020-04-30] VITALS (17 sets, daily range): BP systolic 143–171; BP diastolic 58–82; PULSE 70–86; RESP 18–19; TEMP 36.7–37.7; O2SAT 96–97
[2020-04-30] MEDS: Furosemide 20 MG/2 ML VIAL IVPUSH (00:57)
[2020-04-30] MEDS: ondansetron HCL 4 MG/2 ML VIAL IVPUSH ×2 (02:43→08:56)
[2020-04-30] MEDS: hydrALAZINE HCl 20 MG/ML VIAL 10 MG IVPUSH ×3 (02:50→10:06)
[2020-04-30 04:55] LABS: MANUAL DIFF FLAG NO
[2020-04-30 04:56] LABS: Basophils Percent Auto 0.1 % (0-2); Hemoglobin 12.9 g/dl (12.0-16.0); Imm Gran Abs Auto 0.04 X10*3/uL (0.00-0.03); Imm Gran Pct Auto 0.3 % (0.0-0.4); Lymphocytes Percent Auto 8.2 % (20-40); Mean Corpuscular HGB Conc 33.9 g/dl (31.0-35.0); Mean Corpuscular Hemoglobin 29.8 pg (27.0-33.0); Mean Corpuscular Volume 87.8 fL (80-98); Mean Platelet Volume 9.2 fL (9.4-12.3); Monocytes Absolute Auto 0.7 X10*3/uL (0.1-1.2); Monocytes Percent Auto 5.8 % (2-11); Neutrophils Absolute Auto 10.8 X10*3/uL (2.0-8.3); Neutrophils Percent Auto 85.6 % (45-73); Platelet Count 248 X10*3/uL (160-400); Red Blood Count 4.33 X10*6/uL (4.20-5.50); Red Cell Distribution Width 13.1 % (11.0-16.0); White Blood Count 12.6 X10*3/uL (4.8-10.8)
[2020-04-30 05:34] LABS: Anion Gap 16 (12-20); Blood Urea Nitrogen 13 mg/dL (9-16); Calcium 8.9 mg/dL (8.4-10.2); Carbon Dioxide 22 mmol/L (22-29); Chloride 105 mmol/L (96-108); Creatinine Clr Calc Pharmacy 74.7; Estimated Glomerular Filt Rate 46; Glucose Random 162 mg/dL (60-115); Sodium 139 mmol/L (135-145)
[2020-04-30] MEDS: Metoprolol Tartrate 5 MG in 0.9 % Sodium Chloride 50 ML 110 MG IV ×2 (05:51→12:02)
--- NOTE | 2020-04-30 07:30 | FL_ITS ---
EXAMINATION: UPPER GI GASTROGRAFIN STUDY. CLINICAL INFORMATION: Postop day 1 COMPARISON: None TECHNIQUE: Routine upper GI study was performed with diluted Gastrografin in upright and lying position FINDINGS: Following oral administration of diluted Gastrografin there is normal propagation bolus from the oral cavity through the pharynx, esophagus into stomach without obstruction narrowing or stricture. There is spontaneous passage of contrast from the esophagus to the GE junction to the small stomach. Small visualized stomach is unremarkable. Gastroduodenal anastomosis is widely patent with spontaneous passage of contrast from the stomach and the duodenum. 10 minute delayed images through the upper abdomen reveals contrast extending into the jejunum. No extravasation of contrast seen. There is a Yoruba drainage catheter in the left upper quadrant post surgery. FL/FL upper GI w gastrografin IMPRESSION: Following gastric bypass surgery postop day 1 there is widely patent GE junction and gastroduodenal anastomosis. Contrast is visualized in mid jejunum on delayed 10 minute images. No contrast extravasation seen. Fluoroscopy time: 0.9 minutes. Dose area product: 59.8. Images: 26.
--- NOTE | 2020-04-30 07:30 | XR_ITS ---
EXAMINATION: XR CHEST CLINICAL INFORMATION: Postop day 1 status post GBP COMPARISON: March 21, 2017 and February 14, 2020 TECHNIQUE: 2 views of the chest were obtained. FINDINGS: No significant abnormality is noted involving the heart, lungs, mediastinum, bony thorax or soft tissues. Clips seen about the epigastrium. XR/XR chest 2V IMPRESSION: No acute disease.
[2020-04-30 07:39] LABS: Glucose, Whole Blood 150 mg/dL (60-115)
[2020-04-30] MEDS: Famotidine/PF 20 MG/2 ML VIAL IVPUSH (08:56)
[2020-04-30] MEDS: Diatrizoate Meglumine, Sodium 30 ML SOLUTION PO ×2 (08:56→08:59)
--- NOTE | 2020-04-30 09:14 | MHC.CM.PN ---
CM met with Patient, who lives in a 3 family house, with her , on the second floor and who is functionally independent. Goal for dc is home with new referral to [facility] and CM has initiated and will follow for dc planning.PCP is Dr. Elba Mcghee.
[2020-04-30 11:09] LABS: Glucose, Whole Blood 141 mg/dL (60-115)
--- NOTE | 2020-04-30 12:27 | MHC.CM.PN ---
Per discussion with MD, Patient will be medically cleared for dc to home today, no skilled services (Patient has 01/[employer]).Last IMM addressed yesterday.
--- NOTE | 2020-04-30 12:30 | MHC.CM.PN ---
ERROR!!! Last CM note written in error, in wrong chart.
--- NOTE | 2020-04-30 14:05 | MHC.CM.PN ---
Patient has been medically cleared for dc to home today, with [facility]. A referral was made to [facility], who has been made aware of today's dc.
[2020-04-30] MEDS: Metoprolol Tartrate 50 MG TABLET PO (14:07)
[2020-04-30] MEDS: amLODIPine Besylate 10 MG TABLET PO (14:07)
--- NOTE | 2020-04-30 14:07 | HO.POSTANES ---
Post Anesthesia Evaluation Post Anesthesia Evaluation Vital Signs: Vital Signs Temp Pulse Resp BP Pulse Ox 04/30/20 13:24 154/74 H 04/30/20 11:17 98.7 F 78 18 167/73 H 96 04/30/20 10:06 167/74 H 04/30/20 07:15 99.9 F 79 19 150/58 H 96 04/30/20 06:24 70 159/77 H 04/30/20 05:51 80 166/68 H 04/30/20 03:59 85 171/70 H 04/30/20 03:50 98.1 F 80 18 165/80 H 97 04/30/20 03:30 84 166/70 H 04/30/20 03:20 86 166/67 H 04/30/20 03:10 84 166/72 H 04/30/20 03:00 83 156/70 H 04/30/20 02:50 79 143/77 H Anesthesia: General Endotracheal-GETA Mental Status: Awake Pain Control: Satisfactory Nausea/Vomiting: None Hydration: Adequate Anesthesia-Related Issues: No Anes. Related Issues
== END 2020-04-30 15:22 | disposition home health service (06) | DRG 403 ==
LOC: HO.SSSA 13:08 → HO.S3 16:32
PROVIDERS: Physician Assistant; Admitting Provider Surgery; PCP Internal Medicine; Visit Provider Surgery
PROC: 0D164ZA Bypass Stomach to Jejunum, Percutaneous Endoscopic Approach (ICD-10-PCS; principal; 2020-04-29 07:30)
DX: E66.01 Morbid (severe) obesity due to excess calories (principal); E11.9 Type 2 diabetes mellitus without complications; E78.5 Hyperlipidemia, unspecified; K21.9 Gastro-esophageal reflux disease without esophagitis; I10 Essential (primary) hypertension; Z20.822 Contact with and (suspected) exposure to COVID-19; Z68.42 Body mass index [BMI] 45.0-49.9, adult; J45.909 Unspecified asthma, uncomplicated; F32.9 Major depressive disorder, single episode, unspecified; F41.9 Anxiety disorder, unspecified; Z79.4 Long term (current) use of insulin; Z79.899 Other long term (current) drug therapy
CPT/HCPCS: 36415; 71046; 74240; 80048; 82947; 85014; 85018; 85025; 86850; 86900; 86901; 87635; 99024; C1758; J0131; J0330; J0690; J1100; J1170; J1940; J2250; J2370; J2405; J3010

== ENCOUNTER → 2020-05-05 07:23 | Outpatient (BNVA) | payer OTHER, SELFPAY | PROVIDERS: PCP Internal Medicine; Visit Provider Surgery | DX: E66.01 Morbid (severe) obesity due to excess calories (principal); Z98.84 Bariatric surgery status | CPT/HCPCS: 99212 ==

== ENCOUNTER → 2020-06-02 08:17 | Outpatient (BNVA) | payer OTHER, SELFPAY | PROVIDERS: PCP Internal Medicine; Visit Provider Surgery | DX: E66.01 Morbid (severe) obesity due to excess calories (principal) | CPT/HCPCS: 99212 ==

== ENCOUNTER → 2020-06-20 07:54 | Outpatient (BNVA) | payer OTHER, SELFPAY | PROVIDERS: PCP Internal Medicine; Visit Provider Surgery | DX: E66.9 Obesity, unspecified (principal); Z68.41 Body mass index [BMI] 40.0-44.9, adult; Z71.3 Dietary counseling and surveillance | CPT/HCPCS: 99212 ==

== ENCOUNTER → 2020-07-09 10:30 | Outpatient (BNVA) | payer OTHER, SELFPAY | PROVIDERS: PCP Internal Medicine; Visit Provider Physician Assistant ==

== ENCOUNTER → 2020-07-18 08:03 | Outpatient (BNVA) | payer OTHER, SELFPAY | PROVIDERS: PCP Internal Medicine; Visit Provider Surgery | DX: E66.01 Morbid (severe) obesity due to excess calories (principal); Z68.41 Body mass index [BMI] 40.0-44.9, adult; K21.9 Gastro-esophageal reflux disease without esophagitis | CPT/HCPCS: 99212 ==

== ENCOUNTER → 2020-08-20 08:06 | Outpatient (BNVA) | payer OTHER, SELFPAY | PROVIDERS: PCP Internal Medicine; Visit Provider Surgery ==

== ENCOUNTER → 2020-09-25 07:36 | Outpatient (BNVA) | payer OTHER, SELFPAY | PROVIDERS: PCP Internal Medicine; Visit Provider Surgery ==

== ENCOUNTER 2020-11-05 06:58 | Outpatient (REF) | payer OTHER, SELFPAY ==
[2020-11-05 12:28] LABS: MANUAL DIFF FLAG NO
[2020-11-05 12:40] LABS: Basophils Percent Auto 0.3 % (0-2); Eosinophils Absolute Auto 0.1 X10*3/uL (0.0-0.4); Eosinophils Percent Auto 1.4 % (0-4); Hemoglobin 12.6 g/dl (12.0-16.0); Imm Gran Abs Auto 0.01 X10*3/uL (0.00-0.03); Imm Gran Pct Auto 0.2 % (0.0-0.4); Lymphocytes Absolute Auto 1.3 X10*3/uL (1.2-4.9); Lymphocytes Percent Auto 21.7 % (20-40); Mean Corpuscular HGB Conc 32.3 g/dl (31.0-35.0); Mean Corpuscular Hemoglobin 28.9 pg (27.0-33.0); Mean Corpuscular Volume 89.4 fL (80-98); Mean Platelet Volume 9.8 fL (9.4-12.3); Monocytes Absolute Auto 0.4 X10*3/uL (0.1-1.2); Monocytes Percent Auto 6.8 % (2-11); Neutrophils Absolute Auto 4.1 X10*3/uL (2.0-8.3); Neutrophils Percent Auto 69.6 % (45-73); Platelet Count 237 X10*3/uL (160-400); Red Blood Count 4.36 X10*6/uL (4.20-5.50); White Blood Count 5.9 X10*3/uL (4.8-10.8)
[2020-11-05 12:49] LABS: Estimated Average Glucose 108 mg/dL; Hemoglobin A1c % 5.4 %
[2020-11-05 13:17] LABS: Alanine Aminotransferase 13 U/L (0-31); Albumin Level 3.9 g/dL (3.5-5.0); Alkaline Phosphatase 88 U/L (39-117); Anion Gap 11 (12-20); Aspartate Amino Transferase 17 U/L (5-31); Bilirubin Total 0.8 mg/dL (0.0-1.0); Blood Urea Nitrogen 20 mg/dL (9-16); C Reactive Protein 0.52 mg/dL (< or = 0.50); Calcium 9.5 mg/dL (8.4-10.2); Carbon Dioxide 25 mmol/L (22-29); Chloride 109 mmol/L (96-108); Cholesterol 207 mg/dL; Estimated Glomerular Filt Rate 44; Glucose Random 120 mg/dL (60-115); HDL Cholesterol 54 mg/dL; Iron 91 mcg/dL (30-160); LDL Cholesterol Calculated 115 mg/dl; Percent Iron Saturation 25 % (15-50); Potassium 4.3 mmol/L (3.3-5.1); Sodium 141 mmol/L (135-145); Total Iron Binding Capacity 359 mcg/dL (228-428); Total Protein 6.3 g/dL (6.5-8.0); Triglycerides 193 mg/dL; Unsaturated Iron Binding 268 ug/dL
[2020-11-05 13:41] LABS: Ferritin 76 ng/mL (10-250); TSH reflex Free T4 1.52 uIU/mL (0.32-4.0); Vitamin D 25-OH Total 25.5 ng/mL (>30)
[2020-11-05 13:45] LABS: Folate 14.9 ng/mL (> or = 4.0); Vitamin B12 523 pg/mL (200-900)
[2020-11-06 12:22] LABS: Insulin Level Total 54.3 uIU/mL
[2020-11-06 13:37] LABS: Calcium (PTHI) 9.6 mg/dL (8.6-10.4); PTHI 31 pg/mL (14-64)
[2020-11-08 06:22] LABS: Zinc 67 mcg/dL (60-130)
[2020-11-10 04:06] LABS: Vitamin A 55 mcg/dL (38-98)
[2020-11-11 12:17] LABS: Vitamin B1 31 nmol/L (8-30)
== END 2020-11-05 06:59 | disposition home or self-care (01) ==
LOC: HO.LAB 06:58
PROVIDERS: PCP Internal Medicine; Visit Provider Surgery
DX: E66.9 Obesity, unspecified (principal); I10 Essential (primary) hypertension; E78.5 Hyperlipidemia, unspecified; G47.30 Sleep apnea, unspecified; K91.2 Postsurgical malabsorption, not elsewhere classified; Z90.3 Acquired absence of stomach [part of]; Z68.39 Body mass index [BMI] 39.0-39.9, adult
CPT/HCPCS: 36415; 80053; 80061; 82306; 82607; 82728; 82746; 83036; 83525; 83540; 83970; 84425; 84443; 84590; 84630; 85025; 86140

== ENCOUNTER → 2020-12-24 08:00 | Outpatient (BNVA) | payer OTHER, SELFPAY | PROVIDERS: PCP Internal Medicine; Visit Provider Surgery ==

== ENCOUNTER → 2021-01-14 08:12 | Outpatient (BNVA) | payer OTHER, SELFPAY | PROVIDERS: PCP Internal Medicine; Visit Provider Dietitian, Registered | DX: E66.01 Morbid (severe) obesity due to excess calories (principal) | CPT/HCPCS: 97803 ==

== ENCOUNTER 2021-04-05 10:03 | Emergency (ER) | payer OTHER, SELFPAY ==
--- NOTE | ~2021-04-05 | CT_ITS ---
EXAMINATION: CT ABDOMEN AND PELVIS WITHOUT CONTRAST CLINICAL INFORMATION: LLQ/RUQ abd pain, N/V/ constipation. s/p gastric bygass COMPARISON: Upper GI 04/30/2020, ultrasound abdomen 04/22/2020 TECHNIQUE: Multidetector volumetric imaging was performed from the superior aspect of the liver through the pubic symphysis. Oral contrast was administered. Sagittal and coronal reformatted images were obtained on the technologist's workstation. This CT examination was performed using dose optimization techniques as appropriate, variously including the following: *Automated exposure control *Adjustment of mA and/or kV according to patient size (this includes techniques or standardized protocols for targeted exams where dose is matched to indication/reason for exam; i.e. extremities or head) *Use of iterative reconstruction technique DLP: 910 mGy-cm FINDINGS: LUNG BASES: Some small lung nodules are present at the bases largest measuring 5 mm in the lingula (4:22). LIVER, GALLBLADDER, AND BILIARY TREE: The liver is normal in size, shape, and attenuation. No focal hepatic lesion or biliary ductal dilatation is present. The gallbladder is unremarkable with no evidence of radiopaque gallstones, gallbladder wall thickening, or obvious pericholecystic inflammatory changes. PANCREAS: The pancreatic head and neck appear normal. The body of the pancreas shows minimal changes of edema with loss of the lobular contour and some mild streaky changes in the peripancreatic fat that could represent pancreatitis. Some small gastrohepatic ligament lymph nodes are present in this region the largest measuring 0.9 cm. SPLEEN: Unremarkable. A splenule is noted. ADRENAL GLANDS: Right adrenal gland appears normal. A water density left adrenal mass is present consistent with benign adenoma. KIDNEYS AND URETERS: The kidneys are normal in size, shape, and attenuation. No hydronephrosis, hydroureter, or calculi seen. No perinephric stranding. BLADDER: Unremarkable. GASTROINTESTINAL TRACT: Gastric bypass surgery has been performed in April 2020. Oral contrast passes easily between surgical anastomoses and there is no evidence of bowel obstruction. As mentioned above, the bypass is adjacent to the pancreas is straight some edema and peripancreatic stranding. The small and large bowel are unremarkable. The appendix is not seen. ABDOMINAL WALL: No significant hernia is appreciated. LYMPH NODES: No retroperitoneal lymphadenopathy. Some small peripancreatic periportal and gastrohepatic ligament nodes are present. VASCULAR: Marked aorta iliofemoral calcific atherosclerotic changes present. PELVIC VISCERA: An anteverted uterus is present. An abnormal adnexal mass or free fluid is not seen OSSEOUS STRUCTURES: Degenerative changes are seen in the spine predominantly at L5-S1. CT/CT abdomen pelvis wo con IMPRESSION: Status post gastric bypass surgery with focal edema of the pancreas adjacent to the surgical site. There are small surrounding lymph nodes. Please correlate with serum chemistries. Other findings include a left adrenal adenoma Lung nodules largest of which is 6 mm. 2017 Fleischner Society Recommendations for Lung Nodule(s): Follow-Up based on size (average of long- and short-axis diameters). Use most suspicious nodule for followup. Single Solid high risk nodule < 6 mm: In a low risk patient, no routine follow-up imaging is recommended. In a high risk patient, a non-contrast CT chest at 12 months is optional. If performed and the nodule is stable at 12 months, no further follow-up is recommended. These guidelines do not apply to patients younger than 35 years, immunocompromised patients, and patients with cancer. F/u in patients with significant comorbidities as clinically warranted. For lung cancer screening, adhere to Lung-RADS guidelines. Reference: Radiology. 2017 [employer]; 284(1):228-243 Fleischner guidelines were followed.
[2021-04-05 15:38] VITALS: BP 208/100; PULSE 96; TEMP 36.7; O2SAT 114; BMI 39.1
--- NOTE | 2021-04-05 18:18 | ED_ITS ---
HPI - Abdominal Pain General Chief Complaint: Abdominal Pain Stated Complaint: Complications from surgery Time Seen by Provider: 04/05/21 17:20 Source: patient Mode of arrival: ambulatory History of Present Illness HPI narrative: 60-year-old female with past medical history of anxiety, asthma, COPD, depression, GERD, diabetes, HTN, HLD, sleep apnea on CPAP, s/p cardiac catheterization, s/p gastric bypass 04/2020, presenting to the ED complaining epigastric/ periumbilical abdominal pain, nausea, vomiting, decreased p.o. intake, constipation without BM x4 days. Denies passing flatus. Denies fever, chills, dysuria, flank pain MD elicited complaint: abdominal pain Related Data Home Medications Medication Instructions Recorded Confirmed albuterol sulfate 90 mcg/actuation 2 puff INHALATION Q6H PRN 02/08/20 04/18/20 aerosol inhaler atorvastatin 20 mg tablet 20 mg PO DAILY 02/08/20 04/18/20 blood sugar diagnostic #10 ea 02/08/20 04/18/20 brexpiprazole 1 mg tablet 1 mg PO DAILY 02/08/20 04/18/20 bupropion HCl 150 mg tablet,12 hr 150 mg PO BID 02/08/20 04/18/20 sustained-release clonazepam 0.5 mg tablet 0.5 mg PO BID PRN 02/08/20 04/18/20 duloxetine 20 mg capsule,delayed 40 mg PO BEDTIME 02/08/20 04/18/20 release insulin glargine 100 unit/mL (3 24 unit SUBCUT BEDTIME 02/08/20 04/18/20 mL) subcutaneous pen (Brian Mccall U-100 Insulin) lancets 28 gauge #100 ea 02/08/20 04/18/20 metoprolol tartrate 50 mg tablet 50 mg PO BID 02/08/20 04/18/20 amlodipine 10 mg tablet 1 tab PO DAILY 04/05/21 fluticasone propionate 230 1 puff INHALATION BID 04/05/21 mcg-salmeterol 21 mcg/actuation HFA inhaler (Advair HFA) losartan 25 mg tablet 1 tab PO DAILY 04/05/21 Previous Rx's Medication Instructions Recorded ondansetron HCl 4 mg tablet 4 mg PO Q6H PRN #30 tab 04/18/20 (Zofran) sucralfate 100 mg/mL oral 10 ml PO BID #400 ml 10/28/20 suspension pantoprazole 40 mg tablet,delayed 40 mg PO DAILY #90 tab 03/24/21 release Allergies Allergy/AdvReac Type Severity Reaction Status Date / Time irbesartan [From AVALIDE] Allergy Severe Anaphylaxis Verified 05/05/20 07:30 lisinopril [From Zestril] Allergy Severe ANGIOEDEMA Verified 05/05/20 07:30 Review of Systems Review of Systems Constitutional: No Fever, No Chills, No Fatigue, No Malaise ENT/Mouth: No Ear Pain, No Nasal Congestion, No sore throat, No Rhinorrhea, No Swallowing Difficulty Eyes: No Eye Pain, No Swelling, No Redness Cardiovascular: No Chest Pain, No SOB, No Edema, No Palpitations Respiratory: No Cough, No Dyspnea Gastrointestinal:+ Nausea, + Vomiting, No Diarrhea, + Constipation, + Abdominal pain Genitourinary: No Dysuria, No Urinary Frequency, No Hematuria, No Flank Pain Musculoskeletal: No joint pain, No Myalgias, No Joint Swelling Skin: No Skin Lesions, No rash Neuro: No Weakness, No Dizziness, No Headache Yes all other systems are reviewed and are negative Physical Exam Vital Signs: Vital Signs: Last Vital Signs Temp 98.1 F 04/05/21 15:38 Pulse 111 H 04/05/21 18:19 Resp 18 04/05/21 18:19 BP 156/107 H 04/05/21 18:19 Pulse Ox 97 04/05/21 18:19 BMI result Body Mass Index 39.1 Const: General: cooperative, healthy appearing and no acute distress Orientation/consciousness: patient oriented x3 Limitations: no limitations HENMT: Head: Yes normal to inspection Ears: hearing grossly normal bilaterally General nose exam: Normal external nose present Face and sinus: Yes normal facial exam Eyes: General: appearance normal, both eyes and all related structures EOM: EOMs intact bilaterally Neck: Neck: Yes normal visual inspection and Yes no meningeal signs Resp: Effort & Inspection: normal respiratory effort and no respiratory distress Auscultation: clear to auscultation bilaterally Cardio: Rate: regular rate Heart sounds: S1 normal heart sound present and S2 normal heart sound present GI: Inspection: Yes normal to inspection Palpation (GI): Soft to palpation, Tenderness to palpation present (GI) in the epigastrum, in the LLQ and in the RUQ, no guarding and not rigid : General: Yes no CVA tenderness Back/Spine/Pelvis: Back: no CVA tenderness Skin: Rashes: no rashes Wounds: no wounds Neuro: General: patient oriented x3 and no meningeal signs Gait exam (Neuro): Normal gait present Extrem: General: Yes normal to inspection Course Course Course Narrative: -1846-- mild leukocytosis of 12.0 likely reactive nausea/vomiting 0-- ED care transferred to [facility] pending remaining labs and CT. Dispo per results MDM - Abdominal Pain MDM Narrative Medical decision making narrative: 60-year-old female with past medical history of anxiety, asthma, COPD, depression, GERD, diabetes, HTN, HLD, sleep apnea on CPAP, s/p cardiac catheterization, s/p gastric bypass 04/2020, presenting to the ED complaining epigastric/ periumbilical abdominal pain, nausea, vomiting, decreased p.o. intake, constipation without BM x4 days. on exam tachycardic likely from dehydration, low concern for severe sepsis at this time. Abdomen soft with LLQ/epigastric/RUQ ttp, no rebound or guarding. Concern for SBO vs gastroenteritis /GERD vs cholecystitis/cholelithiasis /pancreatitis plan: Labs, UA, IVF, lactic/ blood cultures, CT abdomen/pelvis Differential Diagnosis Differential diagnosis: Likely abdominal pain, pancreatitis and small bowel obstruction Medical Records Attestation: I reviewed the patient's medical records. Lab Data Attestation: I reviewed the patient's lab results. Result diagrams: 04/05/21 18:33 04/05/21 18:33 Labs: Lab Results 04/05/21 Range/Units 18:33 WBC 12.0 H (4.8-10.8) X10*3/uL RBC 4.90 (4.20-5.50) X10*6/uL Hgb 14.5 (12.0-16.0) g/dl Hct 41.5 (37.0-47.0) % MCV 84.7 (80.0-98.0) fL MCH 29.6 (27.0-33.0) pg MCHC 34.9 (31.0-35.0) g/dl RDW 11.9 (11.0-16.0) % Plt Count 346 (160-400) X10*3/uL MPV 8.9 L (9.4-12.3) fL Immature Gran % (Auto) 0.4 (0.0-0.4) % Neut % (Auto) 78.5 H (45-73) % Lymph % (Auto) 13.3 L (20-40) % Holt % (Auto) 7.3 (2-11) % Eos % (Auto) 0.3 (0-4) % Baso % (Auto) 0.2 (0-2) % Lymph # (Auto) 1.6 (1.2-4.9) X10*3/uL Holt # (Auto) 0.9 (0.1-1.2) X10*3/uL Eos # (Auto) 0.0 (0.0-0.4) X10*3/uL Baso # (Auto) 0.0 (0.0-0.2) X10*3/uL Abs Immat Gran (auto) 0.05 H (0.00-0.03) X10*3/uL Absolute Neuts (auto) 9.4 H (2.0-8.3) x10*3/uL Absolute Nucleated RBC 0.000 (0.0-0.012) X10*3/uL Nucleated RBC % (auto) 0.0 (0.0-0.2) /100WBC Discharge Plan Discharge Clinical Impression: Abdominal pain, Constipation, Nausea & vomiting Prescriptions: No Action sucralfate 100 mg/mL suspension 10 ml PO BID Qty: 400 RF: 2 pantoprazole 40 mg tablet,delayed release (DR/EC) 40 mg PO DAILY Qty: 90 RF: 4 amlodipine 10 mg tablet 1 tab PO DAILY RF: 0 losartan 25 mg tablet 1 tab PO DAILY RF: 0 Advair HFA 230-21 mcg/actuation HFA aerosol inhaler 1 puff inhalation BID RF: 0 clonazepam 0.5 mg tablet 0.5 mg PO BID PRN (Reason: Anxiety) RF: 0 brexpiprazole 1 mg tablet 1 mg PO DAILY RF: 0 duloxetine 20 mg capsule,delayed release(DR/EC) 40 mg PO BEDTIME RF: 0 (DME) FreeStyle Lite Strips Strip See Rx Instructions strip topical QID Qty: 10 RF: 0 bupropion HCl 150 mg tablet sustained-release 12 hr 150 mg PO BID RF: 0 metoprolol tartrate 50 mg tablet 50 mg PO BID RF: 0 albuterol sulfate 90 mcg/actuation HFA aerosol inhaler 2 puff inhalation Q6H PRN (Reason: wheezing) RF: 0 (DME) lancets 28 gauge misc See Rx Instructions ea Not Applicable QID Qty: 100 RF: 0 atorvastatin 20 mg tablet 20 mg PO DAILY RF: 0 Hold Instructions: Resume on 05/13/20. Do not restart until Dr Carrion tells you. Brian CanadaDemarco U-100 Insulin 100 unit/mL (3 mL) insulin pen 24 unit subcut BEDTIME RF: 0 ondansetron HCl [Zofran] 4 mg tablet 4 mg PO Q6H PRN (Reason: nausea and vomiting) Qty: 30 RF: 0 PMFSH Past Medical History Attestation statement: The following information was validated with the patient. Medical History Anxiety Asthma COPD (chronic obstructive pulmonary disease) Depression Diaphragmatic hernia GERD (gastroesophageal reflux disease) Hepatomegaly Hyperlipidemia Hypertension Insulin dependent diabetes mellitus Liver fibrosis Sleep apnea with use of continuous positive airway pressure (CPAP) Steatosis, liver Vitamin B1 deficiency Vitamin B12 deficiency Surgical History History of bilateral carpal tunnel release Hx of breast reduction, elective Hx of cardiac cath Hx of gastric bypass Morbid obesity Family History Family History Father Diabetes Heart disease Hypertension Mother No problems noted. Brother No problems noted. Sister No problems noted. Sister No problems noted. Social History Social History Are you a primary healthcare representative to a significant other at home: No Do you presently have visiting nurse or other home services: No Alcohol intake: former Substance Use Type: Marijuana Advance Directives: No Advance Directives Information Provided: No service: No Current occupational status: unemployed
[2021-04-05 18:19] VITALS: BP 156/107; PULSE 111; RESP 18; O2SAT 97
[2021-04-05 18:40] LABS: MANUAL DIFF FLAG NO
[2021-04-05 18:41] LABS: Basophils Percent Auto 0.2 % (0-2); Eosinophils Percent Auto 0.3 % (0-4); Hematocrit 41.5 % (37.0-47.0); Hemoglobin 14.5 g/dl (12.0-16.0); Imm Gran Abs Auto 0.05 X10*3/uL (0.00-0.03); Imm Gran Pct Auto 0.4 % (0.0-0.4); Lymphocytes Absolute Auto 1.6 X10*3/uL (1.2-4.9); Lymphocytes Percent Auto 13.3 % (20-40); Mean Corpuscular HGB Conc 34.9 g/dl (31.0-35.0); Mean Corpuscular Hemoglobin 29.6 pg (27.0-33.0); Mean Corpuscular Volume 84.7 fL (80.0-98.0); Mean Platelet Volume 8.9 fL (9.4-12.3); Monocytes Absolute Auto 0.9 X10*3/uL (0.1-1.2); Monocytes Percent Auto 7.3 % (2-11); Neutrophils Absolute Auto 9.4 x10*3/uL (2.0-8.3); Neutrophils Percent Auto 78.5 % (45-73); Platelet Count 346 X10*3/uL (160-400); Red Cell Distribution Width 11.9 % (11.0-16.0)
[2021-04-05 18:42] LABS: Appearance Urine HAZY; Color Urine ORANGE; Glucose Urine UA NEG (NEG); Leukocyte Esterase Urine NEG (NEG); Nitrite Urine POS (NEG); PH 5.5 (5.0-8.0); Specific Gravity - Urine >= 1.030 (1.005-1.025); UACC Culture Trigger YES; Urine Blood NEG (NEG); Urine Ketones 15 MG/DL (NEG); Urine Protein 2+ MG/DL (NEG-TRACE)
[2021-04-05 18:49] LABS: Bacteria Urine 1+ /LPF; Mucus Urine 2+ /LPF; RBC Urine 0-2 /HPF (0); Squamous Epithelial Cell Urine 2+ /LPF
[2021-04-05 18:50] LABS: Amorphous Sediment Urine TRACE /LPF
[2021-04-05 18:54] LABS: COVID-19 Test Negative (Negative); IDNOW Serial# 9DD0AD1C
[2021-04-05 18:59] LABS: Alanine Aminotransferase 12 U/L (0-31); Albumin Level 4.2 g/dL (3.5-5.0); Alkaline Phosphatase 92 U/L (39-117); Anion Gap 16 (12-20); Aspartate Amino Transferase 10 U/L (5-31); Bilirubin Direct 0.6 mg/dL (0.0-0.5); Bilirubin Total 1.1 mg/dL (0.0-1.0); Blood Urea Nitrogen 17 mg/dL (9-16); Calcium 9.7 mg/dL (8.4-10.2); Carbon Dioxide 23 mmol/L (22-29); Chloride 104 mmol/L (96-108); Estimated Glomerular Filt Rate 34; Glucose Random 141 mg/dL (60-115); Lipase 36 U/L (8-78); Sodium 139 mmol/L (135-145); Total Protein 7.4 g/dL (6.5-8.0)
[2021-04-05 19:02] VITALS: BP 156/107; PULSE 114
[2021-04-05] MEDS: Famotidine/PF 20 MG/2 ML VIAL IVPUSH (19:02)
[2021-04-05] MEDS: ondansetron HCL 4 MG/2 ML VIAL IVPUSH (19:02)
[2021-04-05] MEDS: Losartan Potassium 25 MG TABLET PO (19:02)
[2021-04-05] MEDS: 0.9 % Sodium Chloride 1,000 ML 999 ML IVCONT (19:02)
[2021-04-05 19:03] VITALS: BP 156/107; PULSE 114
[2021-04-05] MEDS: Metoprolol Tartrate 50 MG TABLET PO (19:03)
[2021-04-05 22:00] VITALS: BP 152/78; PULSE 64; RESP 17; TEMP 36.8; O2SAT 98
--- NOTE | 2021-04-05 23:53 | ECG_ITS ---
Test Reason : abdominal pain Blood Pressure : / mmHG Vent. Rate : 060 BPM Atrial Rate : 060 BPM P-R Int : 164 ms QRS Dur : 084 ms QT Int : 400 ms P-R-T Axes : 067 -31 064 degrees QTc Int : 400 ms Normal sinus rhythm Left axis deviation Nonspecific T wave abnormality Abnormal ECG When compared with ECG of 21-FEB-2020 10:33, Nonspecific T wave abnormality now evident in Lateral leads Referred By: Joon Rogers Electronically Signed By:Leo Zamora
[2021-04-06 01:20] LABS: Alanine Aminotransferase 10 U/L (0-31); Albumin Level 3.6 g/dL (3.5-5.0); Alkaline Phosphatase 79 U/L (39-117); Anion Gap 14 (12-20); Aspartate Amino Transferase 13 U/L (5-31); Bilirubin Total 1.2 mg/dL (0.0-1.0); Blood Urea Nitrogen 16 mg/dL (9-16); Carbon Dioxide 24 mmol/L (22-29); Chloride 105 mmol/L (96-108); Creatinine Clr Calc Pharmacy 73.1; Estimated Glomerular Filt Rate 52; Glucose Random 126 mg/dL (60-115); Sodium 139 mmol/L (135-145); Total Protein 6.1 g/dL (6.5-8.0)
--- NOTE | 2021-04-06 01:23 | PC.NURSE ---
REPORT GIVEN TO MANNIE. CARE TRANSFERED TO MANNIE ARANDA.
[2021-04-06 01:29] LABS: INTERNATIONAL NORM RATIO 1.2 (0.9-1.1); Prothrombin Time 13.6 SEC (9.9-13.0)
[2021-04-06 01:30] LABS: Troponin-I High Sensitivity 74.1 ng/L (<3.5-17.0)
[2021-04-06 01:31] LABS: Partial Thromboplastin Time 38.2 SEC (24.1-38.0)
[2021-04-06 01:50] LABS: B Type Natriuretic Peptide 35 pg/mL (<100)
[2021-04-06 04:10] VITALS: BP 160/75; PULSE 59; RESP 16; TEMP 37.1; O2SAT 97
[2021-04-06 04:43] LABS: Troponin-I High Sensitivity 73.1 ng/L (<3.5-17.0)
[2021-04-06 05:30] VITALS: BP 176/80; PULSE 73; RESP 16; TEMP 37.2; O2SAT 98
[2021-04-06 06:08] VITALS: RESP 20
== END 2021-04-06 06:35 | disposition home or self-care (01) ==
PROVIDERS: Physician Assistant; Emergency Provider Emergency Medicine Emergency Medical Services; PCP Internal Medicine
DX: N39.0 Urinary tract infection, site not specified (principal); K59.00 Constipation, unspecified; Z20.822 Contact with and (suspected) exposure to COVID-19; R10.13 Epigastric pain; R11.2 Nausea with vomiting, unspecified; K86.89 Other specified diseases of pancreas; D35.02 Benign neoplasm of left adrenal gland; R91.1 Solitary pulmonary nodule; E11.9 Type 2 diabetes mellitus without complications; I10 Essential (primary) hypertension; E78.5 Hyperlipidemia, unspecified; Z98.84 Bariatric surgery status; Z79.02 Long term (current) use of antithrombotics/antiplatelets; Z79.899 Other long term (current) drug therapy; Z79.4 Long term (current) use of insulin
CPT/HCPCS: 36415; 74176; 80048; 80053; 80076; 81001; 83690; 83735; 83880; 84484; 85025; 85610; 85730; 87086; 87635; 93005; 96361; 96374; 96375; 99285; J2405; Q9967

== ENCOUNTER 2024-03-28 13:44 | Emergency (ER) | payer OTHER, SELFPAY ==
--- NOTE | ~2024-03-28 | XR_ITS ---
EXAMINATION: XR SHOULDER, LEFT CLINICAL INFORMATION: Pain of the left shoulder. COMPARISON: Chest radiograph from 02/14/2020. TECHNIQUE: 3 views of the left shoulder (AP with external rotation, Grashey view, and Y-view). FINDINGS: No overt evidence of acute fracture or dislocation of the left shoulder. Apparent deformity of the lateral aspect of the left clavicle with bony callus formation (new compared to 2019). The humeral head remains well-seated in the glenoid fossa. The acromioclavicular joint remains well aligned. The coracoclavicular distance and acromiohumeral interval are normal in appearance. No lytic or sclerotic osseous lesions. No focal soft tissue swelling. No radiopaque foreign bodies. The visualized left hemithorax is normal in appearance. XR/XR shoulder LT min 2V IMPRESSION: 1. Apparent deformity of the lateral aspect of the left clavicle with bony callus formation (new compared to 2020 but otherwise age indeterminant). 2. No evidence of additional acute fracture or dislocation of the left shoulder. Electronically signed by: Alli Astudillo DO 03/28/2024 07:03 PM [facility]
--- NOTE | ~2024-03-28 | XR_ITS ---
EXAMINATION: XR ELBOW, LEFT CLINICAL INFORMATION: trauma COMPARISON: None available. TECHNIQUE: AP, lateral, and oblique views of the left elbow. FINDINGS: The bones and soft tissues are normal. No fracture or joint effusion. Alignment is anatomic. Joint spaces are maintained. XR/XR elbow LT min 3V IMPRESSION: Normal left elbow. Electronically signed by: Marcella Collins MD 03/28/2024 05:17 PM [facility]
[2024-03-28 13:54] VITALS: BP 125/74; PULSE 63; RESP 16; TEMP 37; O2SAT 100; BMI 32.4
--- NOTE | 2024-03-28 13:55 | ED.GENADULT ---
HPI - General Adult General Chief complaint: Extremity Injury, Upper Stated complaint: L Arm Pain Injury 03/28/24 Time Seen by Provider: 03/28/24 16:16 Source: patient Mode of arrival: ambulatory Limitations: no limitations History of Present Illness ED Provider: Lisa Ayala PA-C HPI narrative: This is a 63-year-old female, with a history of hypertension, who presents emergency department with complaints of left elbow pain status post mechanical fall which occurred this morning. Patient states that she accidentally slipped on ice and landed directly onto her left elbow. She denies hitting her head or LOC. She denies any headache, dizziness, blurred vision, chest pain, shortness for breath, abdominal pain, nausea, vomiting or diarrhea. She states that her elbow hurts, and worsens with movement of the left elbow. Denies previous problems with her elbow in the past. Denies taking any medications prior to arrival. No other complaints or concerns at this time. MD complaint: Left elbow pain Onset (ago): day(s) Radiation: extremity Quality: aching Pain Consistency: constant Relieving factors: none Exacerbating factors: movement Associated symptoms: denies other symptoms Treatments prior to arrival: none Related Data Home Medications ?Medication ?Instructions ?Recorded ?Confirmed albuterol sulfate 90 mcg/actuation 2 puff inhalation Q6H PRN wheezing 02/08/20 04/18/20 aerosol inhaler atorvastatin 20 mg tablet 20 mg PO DAILY 02/08/20 04/18/20 blood sugar diagnostic #10 ea 02/08/20 04/18/20 brexpiprazole 1 mg tablet 1 mg PO DAILY 02/08/20 04/18/20 bupropion HCl 150 mg tablet,12 hr 150 mg PO BID 02/08/20 04/18/20 sustained-release clonazepam 0.5 mg tablet 0.5 mg PO BID PRN Anxiety 02/08/20 04/18/20 duloxetine 20 mg capsule,delayed 40 mg PO BEDTIME 02/08/20 04/18/20 release insulin glargine 100 unit/mL (3 24 unit subcut BEDTIME 02/08/20 04/18/20 mL) subcutaneous pen (Basaglar KwikPen U-100 Insulin) lancets 28 gauge #100 ea 02/08/20 04/18/20 metoprolol tartrate 50 mg tablet 50 mg PO BID 02/08/20 04/18/20 amlodipine 10 mg tablet 1 tab PO DAILY 04/05/21 fluticasone propionate 230 1 puff inhalation BID 04/05/21 mcg-salmeterol 21 mcg/actuation HFA inhaler (Advair HFA) losartan 25 mg tablet 1 tab PO DAILY 04/05/21 Previous Rx's ?Medication ?Instructions ?Recorded ondansetron HCl 4 mg tablet 4 mg PO Q6H PRN nausea and 04/18/20 (Zofran) vomiting #30 tabs sucralfate 100 mg/mL oral 10 ml PO BID #400 mL 10/28/20 suspension pantoprazole 40 mg tablet,delayed 40 mg PO DAILY #90 tabs 03/24/21 release nitrofurantoin 100 mg PO Q12H 7 days #14 caps 04/06/21 monohydrate/macrocrystals 100 mg capsule (Macrobid) Allergies Allergy/AdvReac Type Severity Reaction Status Date / Time irbesartan [From AVALIDE] Allergy Severe Anaphylaxis Verified 03/28/24 13:58 lisinopril [From Zestril] Allergy Severe ANGIOEDEMA Verified 03/28/24 13:58 Review of Systems Review of Systems: Yes all other systems are reviewed and are negative Constitutional: Constitutional: Reports as per [facility] Past Medical History Medical History Anxiety Asthma COPD (chronic obstructive pulmonary disease) Depression Diaphragmatic hernia GERD (gastroesophageal reflux disease) Hepatomegaly Hyperlipidemia Hypertension Insulin dependent diabetes mellitus Liver fibrosis Sleep apnea with use of continuous positive airway pressure (CPAP) Steatosis, liver Vitamin B1 deficiency Vitamin B12 deficiency Surgical History History of bilateral carpal tunnel release Hx of breast reduction, elective Hx of cardiac cath Hx of gastric bypass Morbid obesity Family History Family History Father Diabetes Heart disease Hypertension Mother No problems noted. Brother No problems noted. Sister No problems noted. Sister No problems noted. Social History Social History Are you a primary healthcare specialist to a significant other at home: No Do you presently have visiting nurse or other home services: No Alcohol intake: former Substance Use Type: Marijuana Advance Directives: No Advance Directives Information Provided: No Do you have a plan to hurt others: No Plan service: No Current occupational status: unemployed Physical Exam ED Vital Signs: Vital Signs - 24 hr 03/28/24 13:54 03/28/24 16:02 03/28/24 16:14 Temperature 98.6 F 98 F Pulse Rate 63 69 Respiratory Rate 16 20 Blood Pressure 125/74 194/84 H 184/71 H Pulse Oximetry 100 100 Oxygen Delivery Method Room Air Room Air 03/28/24 17:56 Temperature 98.7 F Pulse Rate 68 Respiratory Rate 16 Blood Pressure 168/87 H Pulse Oximetry 98 Oxygen Delivery Method Room Air BMI result Body Mass Index 32.4 Const General: cooperative, comfortable and no acute distress Orientation/consciousness: patient oriented x3 Limitations: no limitations HENMT Head: Yes normal to inspection, Yes normocephalic and Yes atraumatic Ears: hearing grossly normal bilaterally General nose exam: Normal external nose present Face and sinus: Yes normal facial exam Mouth: Normal oral and palatal mucosa present, oropharynx normal and moist mucous membranes Throat: Yes posterior oropharynx normal Eyes General: appearance normal, both eyes and all related structures Eyelids: Yes eyelids normal Conjunctivae: conjunctivae normal Sclerae: sclerae normal Pupils: Equal, round and reactive pupils present EOM: EOMs intact bilaterally Neck Neck: Yes normal visual inspection, Yes full ROM and Yes no lymphadenopathy Lymphatic: no lymphadenopathy noted Chest Chest palpation & inspection: normal inspection of the chest Resp Effort & Inspection: normal respiratory effort and able to speak in complete sentences Auscultation: clear to auscultation bilaterally, no crackles, no rales, no rhonchi and no wheezes Cardio Rate: regular rate Rhythm: regular rhythm Heart sounds: S1 normal heart sound present and S2 normal heart sound present GI Inspection: Yes normal to inspection Skin General skin exam: no rashes or lesions noted Trauma: no lacerations or abrasions Wounds: no wounds Neuro General: patient oriented x3 and moves all extremities Cranial nerves: Yes Equal, round and reactive pupils present Extrem Other: Left elbow with multiple superficial abrasions noted, mildly tender to palpation along the medial and lateral epicondyle. No bony step-off or deformity. Decreased range of motion secondary to pain. Humerus is nontender, strong radial pulse, distal sensation circulation intact. Capillary refill less than 2 seconds. Left shoulder with tenderness palpation along the right AC joint, no bony step-off or deformity. Left clavicle nontender, no bony step-off or deformity noted General: Yes normal to inspection Right lower extremity: normal to inspection Left lower extremity: normal to inspection Course Course Course Narrative: RME, this is a rapid medical exam performed by Dago Scales please refer to primary provider for complete H&P- 63-year-old female presents for evaluation of left elbow pain. She reports slipping on ice this morning and landing on her left elbow. Plan for x-ray of the left elbow Reevaluation(s) Reevaluation #1: Patient has a deformity of the lateral aspect of the left clavicle, she is nontender in this region; patient placed in sling. Given orthopedic referral, given strict return precautions, patient stable for discharge. Time: 19:17 Medications Administered Discontinued Medications Generic Name Dose Route Start Last Admin Trade Name Freq PRN Reason Stop Dose Admin Acetaminophen 975 mg 03/28/24 16:51 03/28/24 17:01 Acetaminophen 325 Mg Tablet PO 03/28/24 16:52 975 mg ONCE ONE Administration Diphtheria/Tetanus/Acell Pertussis 0.5 ml 03/28/24 19:02 03/28/24 19:24 Diphth,Pertus(Acell),Tet Adult 0.5 Ml Syringe IM 03/28/24 19:03 0.5 ml .ONCE ONE Administration Medical Decision Making Medical Decision Making [facility] Narrative: This is a 63-year-old female who presents emergency department with complaints of left elbow pain status post mechanical fall which occurred this morning. She accidentally slipped on ice and landed directly onto her left elbow. Denies hitting her head or LOC. She is not on anticoagulation. She reports only left elbow pain however upon physical examination she does have pain overlying the AC joint. Patient able to then to approximately 70? with pain. If this is nontender, hand is nontender. Differential diagnoses include contusion, sprain, strain, fracture. X-ray of the left shoulder, and left elbow ordered. Patient will be medicated with Tylenol. Differential Diagnosis Differential Diagnoses: The differential diagnosis associated with the presentation includes See above Radiology Impression Discussion of test interpretation with radiology: I have reviewed the radiologist's reading. Radiologist Impression: XR/XR elbow LT min 3V IMPRESSION: Normal left elbow. Electronically signed by: Marcella Collins MD 03/28/2024 05:17 PM EST RP Dictated By: Marcella Collins MD Signed By: <Electronically signed by Marcella Collins MD in OV> [place] [id number] XRay Report Signed Patient: Alexandria Galloway MR#: [id number] : 1960 Acct:[id number] Age/Sex: 63 / F ADM Date: 03/28/24 Loc: HO.ED Attending Dr: Ordering Physician: Lisa Ayala Date of Service: 03/28/24 Procedure(s): XR shoulder LT min 2V Accession Number(s): [id number] cc: Lisa Ayala; Elba Mcghee MD~ EXAMINATION: XR SHOULDER, LEFT CLINICAL INFORMATION: Pain of the left shoulder. COMPARISON: Chest radiograph from 02/14/2020. TECHNIQUE: 3 views of the left shoulder (AP with external rotation, Grashey view, and Y-view). FINDINGS: No overt evidence of acute fracture or dislocation of the left shoulder. Apparent deformity of the lateral aspect of the left clavicle with bony callus formation (new compared to 2019). The humeral head remains well-seated in the glenoid fossa. The acromioclavicular joint remains well aligned. The coracoclavicular distance and acromiohumeral interval are normal in appearance. No lytic or sclerotic osseous lesions. No focal soft tissue swelling. No radiopaque foreign bodies. The visualized left hemithorax is normal in appearance. XR/XR shoulder LT min 2V IMPRESSION: 1. Apparent deformity of the lateral aspect of the left clavicle with bony callus formation (new compared to 2019 but otherwise age indeterminant). 2. No evidence of additional acute fracture or dislocation of the left shoulder. Electronically signed by: Alli Astudillo DO 03/28/2024 07:03 PM EST RP Dictated By: Wicho Astudillo DO Discharge Plan Discharge Clinical Impression: Contusion of elbow, left Patient Disposition: Home, Self-Care Instructions: Contusion in Adults (ED) Additional Instructions: You were seen in the emergency department due to left elbow pain. Your x-ray does not show any broken bones. Please rest, ice, and elevate your arm. You may use the sling for comfort. Please take arm out of sling multiple times per day, and perform gentle range of motion. Ibuprofen and or Tylenol can help with pain and symptoms. You may follow-up with the surveillance specialist if you continue to have pain in your left elbow as well as your left shoulder. If any new or worsening symptoms occur including but not limited to severe chest pain, shortness of breath, headaches, worsening pain in your left elbow, please seek emergent care. Prescriptions: No Action sucralfate 100 mg/mL suspension 10 ml PO BID Qty: 400 2RF pantoprazole 40 mg tablet,delayed release (DR/EC) 40 mg PO DAILY Qty: 90 4RF amlodipine 10 mg tablet 1 tab PO DAILY losartan 25 mg tablet 1 tab PO DAILY Advair HFA 230-21 mcg/actuation HFA aerosol inhaler 1 puff inhalation BID nitrofurantoin monohyd/m-cryst [Macrobid] 100 mg capsule 100 mg PO Q12H 7 Days Qty: 14 0RF Rx Instructions: must administer with a meal/food clonazepam 0.5 mg tablet 0.5 mg PO BID PRN (Reason: Anxiety) brexpiprazole 1 mg tablet 1 mg PO DAILY duloxetine 20 mg capsule,delayed release(DR/EC) 40 mg PO BEDTIME (DME) FreeStyle Lite Strips Strip See Rx Instructions topical QID Qty: 10 Rx Instructions: As directed bupropion HCl 150 mg tablet sustained-release 12 hr 150 mg PO BID metoprolol tartrate 50 mg tablet 50 mg PO BID albuterol sulfate 90 mcg/actuation HFA aerosol inhaler 2 puff inhalation Q6H PRN (Reason: wheezing) (DME) lancets 28 gauge misc See Rx Instructions Not Applicable QID Qty: 100 Rx Instructions: As directed atorvastatin 20 mg tablet 20 mg PO DAILY Basaglar ÁlvaroikPen U-100 Insulin 100 unit/mL (3 mL) insulin pen 24 unit subcut BEDTIME ondansetron HCl [Zofran] 4 mg tablet 4 mg PO Q6H PRN (Reason: nausea and vomiting) Qty: 30 0RF Referrals: [facility] [Provider Group] Print Language: [place]
[2024-03-28 16:02] VITALS: BP 194/84; PULSE 69; RESP 20; TEMP 36.6; O2SAT 100
[2024-03-28 16:14] VITALS: BP 184/71
[2024-03-28] MEDS: Acetaminophen 325 MG TABLET 975 MG PO (17:01)
[2024-03-28 17:56] VITALS: BP 168/87; PULSE 68; RESP 16; TEMP 37.1; O2SAT 98
[2024-03-28] MEDS: Diphth,Pertus(ACell),Tet Adult 0.5 ML SYRINGE IM (19:24)
[2024-03-28 19:54] VITALS: BP 168/87; PULSE 68; RESP 16; TEMP 37.1; O2SAT 98
== END 2024-03-28 19:54 | disposition home or self-care (01) ==
PROVIDERS: Emergency Provider Emergency Medicine Emergency Medical Services; PCP Internal Medicine
DX: S50.02XA Contusion of left elbow, initial encounter (principal); S50.312A Abrasion of left elbow, initial encounter; M25.512 Pain in left shoulder; W00.0XXA Fall on same level due to ice and snow, initial encounter; Y93.89 Activity, other specified; Y92.89 Other specified places as the place of occurrence of the external cause; Y99.8 Other external cause status; Z79.899 Other long term (current) drug therapy; Z23 Encounter for immunization
CPT/HCPCS: 73030; 73080; 90471; 90715; 99284

== ENCOUNTER 2024-04-27 10:25 | Outpatient (AMB) | payer OTHER, SELFPAY ==
[2024-04-27 10:44] VITALS: BMI 35.5
--- NOTE | 2024-04-27 10:44 | A.OFFVIS_ITS ---
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 Patient states she also fractured her left wrist and had to have surgery. Patient states she does not have much pain today but she is sizing machine tender to the touch. She is not taking anything for pain at this time. Denies numbness or tingling. 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 Patient states she also fractured her left wrist and had to have surgery. Patient states she does not have much pain today but she is still very slightly tender to the touch. She is not taking anything for pain at this time. Denies numbness or tingling. [facility] Medical History Anxiety Asthma COPD (chronic obstructive pulmonary disease) Depression Diaphragmatic hernia GERD (gastroesophageal reflux disease) Hepatomegaly Hyperlipidemia Hypertension Insulin dependent diabetes mellitus Liver fibrosis Sleep apnea with use of continuous positive airway pressure (CPAP) Steatosis, liver Vitamin B1 deficiency Vitamin B12 deficiency Surgical History History of bilateral carpal tunnel release Hx of breast reduction, elective Hx of cardiac cath Hx of gastric bypass Morbid obesity Family History Father Diabetes Heart disease Hypertension Mother No problems noted. Brother No problems noted. Sister No problems noted. Sister No problems noted. Social History (Updated 04/27/24 @ 10:50 by MADINA Hou) Are you a primary prompt care rn to a significant other at home: No Do you presently have visiting nurse or other home services: No Alcohol intake: former Substance Use Type: Marijuana service: No Current occupational status: unemployed Current occupation: rt handed Physical Exam Vital Signs: BMI result Body Mass Index 35.5 Extrem Other: On inspection, patient's left elbow is normal No edema, erythema ecchymosis noted No lacerations abrasions, open areas No evidence of infection Patient reports very mild tenderness to palpation about the olecranon process No tenderness to palpation of the medial epicondyle, lateral epicondyle, radial head, or elsewhere in the left elbow Patient is able to extend the elbow to 0 difficulty Patient is able to flex the elbow to approximately 120 degrees without difficulty Pronation and supination of the forearm full and intact Distal sensation intact Capillary refill brisk Assessment & Plan Assessment & Plan (1) Contusion of elbow, left: Code(s): S50.02XA - Contusion of left elbow, initial encounter Category: Medical Plan 1. Contusion of the left elbow Symptoms almost resolved Patient is educated about this injury Patient is educated about the typical recovery course At this time, patient is informed that there is no acute intervention indicated for her pain, as it was resolving and there are no observable structural abnormalities in her left elbow Patient was offered a referral to occupational therapy, but declines Patient will follow-up as needed with any acute concerns Coding Level of Care Code New Pt Level 3 (58707) Diagnoses Contusion of elbow, left S50.02XA
== END 2024-04-27 11:04 | disposition home or self-care (01) ==
PROVIDERS: PCP Internal Medicine
DX: S50.02XA Contusion of left elbow, initial encounter (principal)
CPT/HCPCS: 99203

== ENCOUNTER → 2024-04-27 10:25 | Outpatient (BNVA) | payer OTHER, SELFPAY | PROVIDERS: PCP Internal Medicine | DX: S50.02XA Contusion of left elbow, initial encounter (principal) | CPT/HCPCS: 99202 ==